=== PATIENT | male | born 1990 | race Caucasian/White ===

== ENCOUNTER 2019-02-05 09:37 | Inpatient (IN) | payer MEDICAID ==
[~2019-02-05] VITALS: Ht 182.9 cm; Wt 97.5 kg
[~2019-02-05 09:37] MED LIST: CLIN300C10 PO
[2019-02-05] MEDS ORDERED: IBUPROFEN 600 MG TAB PO ONE (10:30)
[2019-02-05] MEDS ORDERED: CEFTRIAXONE 1 GM INJ IM ONE (10:30)
[2019-02-05] MEDS ORDERED: SOD CHLORIDE 0.9% 500 ML IV STA (11:23)
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
[2019-02-05] MEDS ORDERED: VANCOMYCIN 1 GM (PMX) 250 ML IVPB ONE (11:30)
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
[2019-02-05] MEDS ORDERED: VANCOMYCIN IV PER PHARMACY XX SCH (15:30)
[2019-02-05] MEDS ORDERED: NACL 0.9% 3 ML SYG IV SCH (15:30)
[2019-02-05] MEDS ORDERED: ONDANSETRON 4 MG INJ IV PRN (15:30)
[2019-02-05] MEDS ORDERED: HYDROCODONE/APAP (5/325) TAB PO PRN (15:30)
[2019-02-05] MEDS ORDERED: ACETAMINOPHEN 325 MG TAB PO PRN (15:30)
[2019-02-05] MEDS ORDERED: HYDROmorphONE 0.5 MG/0.5 ML SYG IV PRN (15:30)
[2019-02-05 15:50] VITALS: Ht 182.9 cm; Wt 97.5 kg
[2019-02-05 16:00] VITALS: BP 131/63; PULSE 97; RESP 18
[2019-02-05] MEDS: NICOTINE (14 MG/24 HR) PATCH TRANSDERM SCH (16:30)
[2019-02-05] MEDS: PIPER-TAZO 3.375 GM IV (PMX) 100 ML IVPB SCH (17:44)
[2019-02-05] MEDS: METHADONE (1 MG/ML 5 ML PO UD SYG) PO SCH (21:06)
[2019-02-05] MEDS: VANCOMYCIN 1.5 GM/NS 250 ML 250 ML IVPB SCH (21:06)
[2019-02-06] MEDS: PIPER-TAZO 3.375 GM IV (PMX) 100 ML IVPB SCH ×5 (00:25→23:18)
[2019-02-06] MEDS: VANCOMYCIN 1.5 GM/NS 250 ML 250 ML IVPB SCH ×3 (02:08→18:27)
[2019-02-06 08:08] VITALS: BP 138/66; PULSE 81; RESP 17
[2019-02-06] MEDS: METHADONE (1 MG/ML 5 ML PO UD SYG) PO SCH ×3 (08:50→20:46)
[2019-02-06] MEDS: NICOTINE (14 MG/24 HR) PATCH TRANSDERM SCH (08:51)
[2019-02-06] MEDS: ENOXAPARIN 40 MG/0.4 ML SYG SC SCH (08:51)
--- NOTE | 2019-02-06 12:27 | PN ---
Date/Time of Note Date/Time of Note DATE: 02/06/19 TIME: 12:24 Assessment/Plan VTE Prophylaxis Risk score (from Nsg)>0 risk: 0 SCD applied (from Nsg): Yes Pharmacological prophylaxis: LMWH Lines/Catheters IV Catheter Type (from Nrsg): Mid Line Assessment/Plan Hospital Course SUBJECTIVE: Continues to complain of LUE pain. OBJECTIVE: Physical Exam General: Adequately build 28 year-old male lying in bed in no apparent distress. HEENT: Normocephalic, atraumatic. Eyes: Anicteric sclerae, conjunctivae clear. ENT: Nasal septum is midline, oral mucosa is moist. Poor dentition. Neck supple, no JVD noticed. Respiratory: Bilaterally clear breath sounds. No use of accessory muscles of respiration. No adventitious breath sounds. Cardiovascular: S1, S2 heard. Regular rate and rhythm. Abdomen: Soft, nontender, and nondistended. Bowel sounds positive in all 4 quadrants. Genitourinary: Deferred. Extremities: No cyanosis, no clubbing. Left hand edema and erythema with tenderness in the dorsal aspect. Left forearm larger than right for arm. Peripheral pulses palpable. Neurologic: Cranial nerves II through XII grossly intact. The patient is awake, alert, and oriented. Labs & Vitals per chart ASSESSMENT & PLAN 28-year-old male with history of IV drug use who presented to the emergency room with left arm pain and edema with evidence of underlying cellulitis and possible underlying abscess, who was admitted to inpatient setting for further treatment and evaluation. 1. Left hand cellulitis with possible underlying abscess. Continue the patient on antimicrobials including coverage for anaerobes and MRSA. Orthopedic surgery consult pending. Continue pain control. Elevate left upper extremity while resting. 2. IV drug abuse. Cessation advised. Social work consult. 3. Homelessness. Social work consult. 4. Fluids, electrolytes, and nutrition. Regular diet. 5. DVT prophylaxis. Subcutaneous Lovenox. 6. Plan. Continue antimicrobials. Await left upper extremity MRI. Await orthopedic surgery evaluation. Obtain ID consult. The patient was seen in collaboration with Dr. Arrieta. Result Diagram: 02/06/19 0830 02/06/19 0830 Results 24hrs Laboratory Tests Test 02/06/19 08:30 White Blood Count 4.3 #L Red Blood Count 4.22 L Hemoglobin 12.6 L Hematocrit 37.4 L Mean Corpuscular Volume 88.6 Mean Corpuscular Hemoglobin 29.9 Mean Corpuscular Hemoglobin Concent 33.7 Red Cell Distribution Width 12.7 Platelet Count 275 Mean Platelet Volume 8.7 Immature Granulocytes % 0.700 H Neutrophils % 67.4 Lymphocytes % 18.6 Monocytes % 10.5 Eosinophils % 1.6 Basophils % 1.2 Nucleated Red Blood Cells % 0.0 Immature Granulocytes # 0.030 Neutrophils # 2.9 Lymphocytes # 0.8 Monocytes # 0.5 Eosinophils # 0.1 Basophils # 0.1 Nucleated Red Blood Cells # 0.0 Erythrocyte Sedimentation Rate 33 H Sodium Level 139 Potassium Level 3.5 Chloride Level 107 Carbon Dioxide Level 26 Anion Gap 6 Blood Urea Nitrogen 9 Creatinine 0.76 Est Glomerular Filtrat Rate mL/min > 60 Glucose Level 98 Calcium Level 8.5 Phosphorus Level 3.3 Magnesium Level 1.8 Total Bilirubin 0.7 Direct Bilirubin 0.00 Indirect Bilirubin 0.7 Aspartate Amino Transf (AST/SGOT) 36 Alanine Aminotransferase (ALT/SGPT) 36 Alkaline Phosphatase 52 C-Reactive Protein 4.0 H Total Protein 6.5 Albumin 3.2 L Globulin 3.30 H Albumin/Globulin Ratio 0.96 Exam/Review of Systems Exam Vitals Vital Signs Date Temp Pulse Resp B/P (MAP) Pulse Ox O2 O2 Flow FiO2 Time Delivery Rate 02/06/19 98.4 81 17 138/66 96 08:08 (90) 02/05/19 Room Air 16:00 Intake and Output 02/05/19 02/05/19 02/06/19 1515:00 23:00 07:00 IntakeIntake Total 580 ml 940 ml OutputOutput Total 500 ml BalanceBalance 580 ml 440 ml Results Results 24hrs Laboratory Tests Test 02/06/19 08:30 White Blood Count 4.3 #L Red Blood Count 4.22 L Hemoglobin 12.6 L Hematocrit 37.4 L Mean Corpuscular Volume 88.6 Mean Corpuscular Hemoglobin 29.9 Mean Corpuscular Hemoglobin Concent 33.7 Red Cell Distribution Width 12.7 Platelet Count 275 Mean Platelet Volume 8.7 Immature Granulocytes % 0.700 H Neutrophils % 67.4 Lymphocytes % 18.6 Monocytes % 10.5 Eosinophils % 1.6 Basophils % 1.2 Nucleated Red Blood Cells % 0.0 Immature Granulocytes # 0.030 Neutrophils # 2.9 Lymphocytes # 0.8 Monocytes # 0.5 Eosinophils # 0.1 Basophils # 0.1 Nucleated Red Blood Cells # 0.0 Erythrocyte Sedimentation Rate 33 H Sodium Level 139 Potassium Level 3.5 Chloride Level 107 Carbon Dioxide Level 26 Anion Gap 6 Blood Urea Nitrogen 9 Creatinine 0.76 Est Glomerular Filtrat Rate mL/min > 60 Glucose Level 98 Calcium Level 8.5 Phosphorus Level 3.3 Magnesium Level 1.8 Total Bilirubin 0.7 Direct Bilirubin 0.00 Indirect Bilirubin 0.7 Aspartate Amino Transf (AST/SGOT) 36 Alanine Aminotransferase (ALT/SGPT) 36 Alkaline Phosphatase 52 C-Reactive Protein 4.0 H Total Protein 6.5 Albumin 3.2 L Globulin 3.30 H Albumin/Globulin Ratio 0.96 Medications Medication Current Medications IV Flush (NS 3 ml) 3 ml PER PROTOCOL IV ; Start 02/05/19 at 15:30 Ondansetron HCl (Zofran Inj) 4 mg Q6H PRN IV NAUSEA/VOMITING; Start 02/05/19 at 15:30 Acetaminophen (Tylenol Tab) 650 mg Q6H PRN PO .PAIN 1-3 OR TEMP; Start 02/05/19 at 15:30 Acetaminophen/ Hydrocodone Bitart ([place] (5/325)) 1 tab Q6H PRN PO .MOD PAIN 4- 6; Start 02/05/19 at 15:30 Hydromorphone HCl (Dilaudid) 0.5 mg Q4H PRN IV .SEVERE PAIN 7-10; Start 02/05/19 at 15:30 Enoxaparin Sodium (Lovenox) 40 mg DAILY SC ; Start 02/06/19 at 09:00 Vancomycin HCl (Vanco Iv Per Pharmacy) VANCOMYCIN PER PHARMACY PER PROTOCOL XX ; Start 02/05/19 at 15:30 Piperacillin Sod/ Tazobactam Sod 100 ml @ 200 mls/hr Q6 IVPB Last administered on 02/06/19at 05:42; Admin Dose 200 MLS/HR; Start 02/05/19 at 18:00 Vancomycin/Sodium Chloride 250 ml @ 83.333 mls/ hr Q8H IVPB Last administered on 02/06/19at 10:18; Admin Dose 83.333 MLS/HR; Start 02/05/19 at 18:00 Nicotine (Nicoderm 14 Mg/ 24hr) 1 patch DAILY TRANSDERM ; Start 02/05/19 at 16:30 Methadone HCl (Methadone Liq) 20 mg TID PO Last administered on 02/06/19at 08:50; Admin Dose 20 MG; Start 02/05/19 at 21:00 RADHA ROSS NP Feb 06, 2019 12:27
[2019-02-06 15:08] VITALS: BP 130/74; PULSE 80; RESP 18
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
[2019-02-06 20:00] VITALS: BP 131/66; PULSE 69; RESP 17
[2019-02-07 02:00] VITALS: BP 126/59; PULSE 62; RESP 17
[2019-02-07] MEDS: VANCOMYCIN 1.5 GM/NS 250 ML 250 ML IVPB SCH ×2 (02:23→09:17)
[2019-02-07] MEDS: PIPER-TAZO 3.375 GM IV (PMX) 100 ML IVPB SCH ×3 (05:40→17:08)
[2019-02-07 07:59] VITALS: BP 121/71; PULSE 72; RESP 18
[2019-02-07 08:00] VITALS: BP 127/64; PULSE 64; RESP 18
[2019-02-07] MEDS: NICOTINE (14 MG/24 HR) PATCH TRANSDERM SCH (09:00)
[2019-02-07] MEDS: ENOXAPARIN 40 MG/0.4 ML SYG SC SCH ×2 (09:00→10:11)
[2019-02-07] MEDS: METHADONE (1 MG/ML 5 ML PO UD SYG) PO SCH ×2 (11:15→14:02)
[2019-02-07 14:03] VITALS: BP 131/67; PULSE 68; RESP 18
--- NOTE | 2019-02-07 14:10 | PN ---
Date/Time of Note Date/Time of Note DATE: 02/07/19 TIME: 14:06 Assessment/Plan VTE Prophylaxis Risk score (from Nsg)>0 risk: 0 SCD applied (from Nsg): Yes Pharmacological prophylaxis: LMWH Lines/Catheters IV Catheter Type (from Nrsg): Mid Line Assessment/Plan Hospital Course Assessment and plan #Left hand cellulitis with abscess. MRI of left hand did show: Abscess within the dorsal hand at the level of the metacarpals over the extensor tendons in which the fluid collection also extends to surround the fourth extensor compartment tendons at the level of the carpal bones with tenosynovitis (8.2 x 4.1 x 1.3 cm). Orthopedic surgeon to follow Continue with antibiotics #History of IV drug use Cessation was advised viscosity worker to follow #Homelessness viscosity worker to follow Disposition and plan. Continue with antibiotics. Awaiting surgeon evaluation. Analgesics as needed. viscosity worker to follow. Discussed POC with Dr. Mora Result Diagram: 02/06/19 0830 02/06/19 0830 Results 24hrs Laboratory Tests Test 02/06/19 17:10 Vancomycin Level Trough 17.2 Subjective 24 Hr Interval Summary Free Text/Dictation reports pain on left hand Exam/Review of Systems Exam Vitals Vital Signs Date Temp Pulse Resp B/P (MAP) Pulse Ox O2 O2 Flow FiO2 Time Delivery Rate 02/07/19 97.7 68 18 131/67 97 14:03 (88) 02/05/19 Room Air 16:00 Intake and Output 02/06/19 02/06/19 02/07/19 1515:00 23:00 07:00 IntakeIntake Total 350 ml 850 ml 450 ml OutputOutput Total 350 ml BalanceBalance 350 ml 500 ml 450 ml Constitutional: alert, oriented Psych: nl mood/affect Head: normocephalic Neck: supple Respiratory: No wheezing Cardiovascular: other (regular rate ) Gastrointestinal: soft, non-tender Musculoskeletal: swelling (left hand ) Neurological: SVP RESEARCH AND STRATEGIC ANALYSIS II-XII intact, nl mental status, nl speech Skin: other (erythema swelling on left hand ) Results Results 24hrs Laboratory Tests Test 02/06/19 17:10 Vancomycin Level Trough 17.2 Medications Medication Current Medications IV Flush (NS 3 ml) 3 ml PER PROTOCOL IV ; Start 02/05/19 at 15:30 Ondansetron HCl (Zofran Inj) 4 mg Q6H PRN IV NAUSEA/VOMITING; Start 02/05/19 at 15:30 Acetaminophen (Tylenol Tab) 650 mg Q6H PRN PO .PAIN 1-3 OR TEMP; Start 02/05/19 at 15:30 Acetaminophen/ Hydrocodone Bitart ([place] (5/325)) 1 tab Q6H PRN PO .MOD PAIN 4- 6; Start 02/05/19 at 15:30 Hydromorphone HCl (Dilaudid) 0.5 mg Q4H PRN IV .SEVERE PAIN 7-10; Start 02/05/19 at 15:30 Enoxaparin Sodium (Lovenox) 40 mg DAILY SC ; Start 02/06/19 at 09:00 Vancomycin HCl (Vanco Iv Per Pharmacy) VANCOMYCIN PER PHARMACY PER PROTOCOL XX ; Start 02/05/19 at 15:30 Piperacillin Sod/ Tazobactam Sod 100 ml @ 200 mls/hr Q6 IVPB Last administered on 02/07/19at 11:15; Admin Dose 200 MLS/HR; Start 02/05/19 at 18:00 Nicotine (Nicoderm 14 Mg/ 24hr) 1 patch DAILY TRANSDERM ; Start 02/05/19 at 16:30 Methadone HCl (Methadone Liq) 20 mg TID PO Last administered on 02/07/19at 14:02; Admin Dose 20 MG; Start 02/05/19 at 21:00 Vancomycin/Sodium Chloride 250 ml @ 83.333 mls/ hr Q8H IVPB ; Start 02/07/19 at 21:00 Miscellaneous Information (*Rx Drug Level Order Reminder*) 1999 ONCE XX ; Start 02/08/19 at 20:00; Stop 02/08/19 at 20:01 LEIDY DENNIS NP Feb 07, 2019 14:10
[2019-02-07 20:00] VITALS: BP 126/61; PULSE 71; RESP 18
--- NOTE | 2019-02-07 20:35 | PN ---
DATE: 02/07/2019 SUBJECTIVE: Patient is awake, looks comfortable, no fevers overnight. He is on IV vancomycin and Zo syn. Blood cultures negative. PHYSICAL EXAMINATION: GENERAL: This is a well-developed, middle-aged white man who is alert, in no distress. HEENT: Head atraumatic, normocephalic. Sclerae anicteric. Buccal mucosa dry. NECK: Supple. CHEST: Rise symmetrical. Breath sounds clear. HEART: S1, S2. ABDOMEN: Soft, bowel sounds present. EXTREMITIES: Left hand significant swelling and erythema extending up to the elbow. ASSESSMENT: 1. Left hand cellulitis, possible abscess. 2. Intravenous drug abuse. 3. Homelessness. PLAN: The patient remains stable. Continue antibiotics. Continue left hand elevation on 3 pillows. Await for ortho evaluation and recommendations. Apply warm moist compresses hourly. Dictated By: ADRIENNE LOPEZ TIRE FINISHER for VINEET FLOWERS/DANY Conf#: [id number] DID#: [id number]
[2019-02-07] MEDS: METHADONE 10 MG TAB PO SCH (20:52)
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
[2019-02-07] MEDS: VANCOMYCIN 1.25 GM/NS 250 ML 250 ML IVPB SCH (21:05)
[2019-02-08] MEDS: PIPER-TAZO 3.375 GM IV (PMX) 100 ML IVPB SCH ×4 (00:26→18:33)
[2019-02-08 02:00] VITALS: BP 107/61; PULSE 67; RESP 19
[2019-02-08] MEDS: VANCOMYCIN 1.25 GM/NS 250 ML 250 ML IVPB SCH ×2 (04:33→14:53)
--- NOTE | 2019-02-08 07:25 | CONS ---
Assessment/Plan Assessment/Plan Assessment/Plan (Daily) Left hand abscess Heroin use Denies sharing needles Denies a history of hepatitis or HIV Antisocial personality Complete database secondary to the above At this time we will start him off on methadone minimal pain control medications. At the time of discharge patient should be referred to a drug treatment program and outpatient to methadone treatment program. Consultation Date/Type/Reason Admit Date/Time Date/Time of Note DATE: 02/08/19 TIME: 07:22 Hx of Present Illness This is a 28-year-old male who presents [facility] with left hand and arm cellulitis and asked to see in pain management consultation. This gentleman is less than enthusiastic to give me a clear history of present illness. He is asleep he has the covers over his head and I am stimulating him when he wakes up he seems very irritated. He has a history of IV drug abuse with heroin, shooting up approximately 8 times a day. Currently on IV antibiotics been seen by orthopedics surgery and infectious disease. On broad- spectrum IV antibiotic coverage she does not give me a history of how long he has been on heroin he does say he was arrested at some time in the past, he has never been on a drug treatment program he is homeless. The last time he shot up was the day of admission. [place] any other illicit drug use. Past Medical History Home Meds No Active Prescriptions or Reported Meds Medications Current Medications IV Flush (NS 3 ml) 3 ml PER PROTOCOL IV ; Start 02/05/19 at 15:30 Ondansetron HCl (Zofran Inj) 4 mg Q6H PRN IV NAUSEA/VOMITING; Start 02/05/19 at 15:30 Acetaminophen (Tylenol Tab) 650 mg Q6H PRN PO .PAIN 1-3 OR TEMP; Start 02/05/19 at 15:30 Acetaminophen/ Hydrocodone Bitart ([place] (5/325)) 1 tab Q6H PRN PO .MOD PAIN 4- 6; Start 02/05/19 at 15:30 Hydromorphone HCl (Dilaudid) 0.5 mg Q4H PRN IV .SEVERE PAIN 7-10; Start 02/05/19 at 15:30 Enoxaparin Sodium (Lovenox) 40 mg DAILY SC ; Start 02/06/19 at 09:00 Vancomycin HCl (Vanco Iv Per Pharmacy) VANCOMYCIN PER PHARMACY PER PROTOCOL XX ; Start 02/05/19 at 15:30 Piperacillin Sod/ Tazobactam Sod 100 ml @ 200 mls/hr Q6 IVPB Last administered on 02/08/19at 00:26; Admin Dose 200 MLS/HR; Start 02/05/19 at 18:00 Nicotine (Nicoderm 14 Mg/ 24hr) 1 patch DAILY TRANSDERM ; Start 02/05/19 at 16:30 Vancomycin/Sodium Chloride 250 ml @ 83.333 mls/ hr Q8H IVPB Last administered on 02/08/19at 04:33; Admin Dose 83.333 MLS/HR; Start 02/07/19 at 21:00 Miscellaneous Information (*Rx Drug Level Order Reminder*) 1999 ONCE XX ; Start 02/08/19 at 20:00; Stop 02/08/19 at 20:01 Methadone HCl (Methadone) 20 mg TID PO Last administered on 02/07/19at 20:52; Admin Dose 20 MG; Start 02/07/19 at 21:00 Allergies: Coded Allergies: cortisone (Verified Allergy, Mild, 02/05/19) Past Surgical History Past Surgical Hx: no surgical history Social History Alcohol Use: none Smoking Status: Current every day smoker Drug Use: heroin Exam/Review of Systems Exam Vitals Vital Signs Date Temp Pulse Resp B/P (MAP) Pulse Ox O2 O2 Flow FiO2 Time Delivery Rate 02/08/19 98.0 67 19 107/61 96 02:00 (76) 02/05/19 Room Air 16:00 Intake and Output 02/07/19 02/07/19 02/08/19 1515:00 23:00 07:00 IntakeIntake Total 1482 ml 460 ml 750 ml OutputOutput Total 1300 ml 300 ml 600 ml BalanceBalance 182 ml 160 ml 150 ml Constitutional: alert, oriented, well developed Psych: other (Irritated) Head: normocephalic, atraumatic; No lacerations, No hematomas, No other Eyes: nl conjunctiva, EOMI, nl lids, nl sclera, PERRL; No icteric, No fundi, disc, No other Neck: supple, non-tender; No jvd, No bruits, No masses, No thyromegaly, No nuchal rigidity, No other Respiratory: clear to auscultation, normal air movement; No congested cough, No crackles/rales, No diminished breath sounds, No intercostal retraction, No labored breathing, No respirations, No tactile fremitus, No wheezing, No other Extremities: other (Left hand grossly edematous erythematous from digits to elbow no gross streaking erythema flocculence of the dorsal aspect of his left hand) Results Result Diagram: 02/06/19 0830 02/08/19 0533 Results 24hrs Laboratory Tests Test 02/08/19 05:33 Blood Urea Nitrogen 6 L Creatinine 0.89 Medications Medication Current Medications IV Flush (NS 3 ml) 3 ml PER PROTOCOL IV ; Start 02/05/19 at 15:30 Ondansetron HCl (Zofran Inj) 4 mg Q6H PRN IV NAUSEA/VOMITING; Start 02/05/19 at 15:30 Acetaminophen (Tylenol Tab) 650 mg Q6H PRN PO .PAIN 1-3 OR TEMP; Start 02/05/19 at 15:30 Acetaminophen/ Hydrocodone Bitart ([place] (5/325)) 1 tab Q6H PRN PO .MOD PAIN 4- 6; Start 02/05/19 at 15:30 Hydromorphone HCl (Dilaudid) 0.5 mg Q4H PRN IV .SEVERE PAIN 7-10; Start 02/05/19 at 15:30 Enoxaparin Sodium (Lovenox) 40 mg DAILY SC ; Start 02/06/19 at 09:00 Vancomycin HCl (Vanco Iv Per Pharmacy) VANCOMYCIN PER PHARMACY PER PROTOCOL XX ; Start 02/05/19 at 15:30 Piperacillin Sod/ Tazobactam Sod 100 ml @ 200 mls/hr Q6 IVPB Last administered on 02/08/19at 00:26; Admin Dose 200 MLS/HR; Start 02/05/19 at 18:00 Nicotine (Nicoderm 14 Mg/ 24hr) 1 patch DAILY TRANSDERM ; Start 02/05/19 at 16:30 Vancomycin/Sodium Chloride 250 ml @ 83.333 mls/ hr Q8H IVPB Last administered on 02/08/19at 04:33; Admin Dose 83.333 MLS/HR; Start 02/07/19 at 21:00 Miscellaneous Information (*Rx Drug Level Order Reminder*) 1999 ONCE XX ; Start 02/08/19 at 20:00; Stop 02/08/19 at 20:01 Methadone HCl (Methadone) 20 mg TID PO Last administered on 02/07/19at 20:52; Admin Dose 20 MG; Start 02/07/19 at 21:00 JOSÉ MIGUEL GONZALES Feb 08, 2019 07:25
[2019-02-08] MEDS ORDERED: HYDROmorphONE 2 MG/ML SYG IV PRN (07:30)
[2019-02-08 08:00] VITALS: BP 134/72; PULSE 73; RESP 14
[2019-02-08] MEDS: METHADONE 10 MG TAB PO SCH ×3 (08:15→22:00)
[2019-02-08] MEDS: NICOTINE (14 MG/24 HR) PATCH TRANSDERM SCH (08:15)
[2019-02-08] MEDS: ENOXAPARIN 40 MG/0.4 ML SYG SC SCH (08:16)
[2019-02-08] MEDS ORDERED: HYDROCODONE/APAP (5/325) TAB PO PRN (09:30)
--- NOTE | 2019-02-08 11:32 | PN ---
Date/Time of Note Date/Time of Note DATE: 02/08/19 TIME: 11:29 Assessment/Plan VTE Prophylaxis Risk score (from Nsg)>0 risk: 0 SCD applied (from Nsg): No SCD contraindicated: other Pharmacological prophylaxis: LMWH Lines/Catheters IV Catheter Type (from Nrsg): Mid Line Assessment/Plan Hospital Course Assessment and plan #Left hand cellulitis with abscess. MRI of left hand did show: Abscess within the dorsal hand at the level of the metacarpals over the extensor tendons in which the fluid collection also extends to surround the fourth extensor compartment tendons at the level of the carpal bones with tenosynovitis (8.2 x 4.1 x 1.3 cm). 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 Continue with antibiotics. Tentative plan for I&D of left upper extremity. Continue in-house monitoring. Discussed POC with Dr. Mora Result Diagram: 02/06/19 0830 02/08/19 0533 Results 24hrs Laboratory Tests Test 02/08/19 05:33 Blood Urea Nitrogen 6 L Creatinine 0.89 Subjective 24 Hr Interval Summary Free Text/Dictation Reports still having pain on left hand. Exam/Review of Systems Exam Vitals Vital Signs Date Temp Pulse Resp B/P (MAP) Pulse Ox O2 O2 Flow FiO2 Time Delivery Rate 02/08/19 96.8 73 14 134/72 95 08:00 (92) 02/05/19 Room Air 16:00 Intake and Output 02/07/19 02/07/19 02/08/19 1515:00 23:00 07:00 IntakeIntake Total 1482 ml 460 ml 750 ml OutputOutput Total 1300 ml 300 ml 600 ml BalanceBalance 182 ml 160 ml 150 ml Exam Constitutional: alert, oriented Psych: nl mood/affect Head: normocephalic Neck: supple Respiratory: No wheezing Cardiovascular: other (regular rate ) Gastrointestinal: soft, non-tender Musculoskeletal: swelling (left hand ) Neurological: HEAD BANQUET WAITRESS II-XII intact, nl mental status, nl speech Skin: other (erythema swelling on left hand ) Results Results 24hrs Laboratory Tests Test 02/08/19 05:33 Blood Urea Nitrogen 6 L Creatinine 0.89 Medications Medication Current Medications IV Flush (NS 3 ml) 3 ml PER PROTOCOL IV ; Start 02/05/19 at 15:30 Ondansetron HCl (Zofran Inj) 4 mg Q6H PRN IV NAUSEA/VOMITING; Start 02/05/19 at 15:30 Acetaminophen (Tylenol Tab) 650 mg Q6H PRN PO .PAIN 1-3 OR TEMP; Start 02/05/19 at 15:30 Enoxaparin Sodium (Lovenox) 40 mg DAILY SC ; Start 02/06/19 at 09:00 Vancomycin HCl (Vanco Iv Per Pharmacy) VANCOMYCIN PER PHARMACY PER PROTOCOL XX ; Start 02/05/19 at 15:30 Piperacillin Sod/ Tazobactam Sod 100 ml @ 200 mls/hr Q6 IVPB Last administered on 02/08/19at 08:12; Admin Dose 200 MLS/HR; Start 02/05/19 at 18:00 Nicotine (Nicoderm 14 Mg/ 24hr) 1 patch DAILY TRANSDERM ; Start 02/05/19 at 16 :30 Vancomycin/Sodium Chloride 250 ml @ 83.333 mls/ hr Q8H IVPB Last administered on 02/08/19at 04:33; Admin Dose 83.333 MLS/HR; Start 02/07/19 at 21:00 Miscellaneous Information (*Rx Drug Level Order Reminder*) 1 2000 ONCE XX ; Start 02/08/19 at 20:00; Stop 02/08/19 at 20:01 Methadone HCl (Methadone) 20 mg TID PO Last administered on 02/08/19at 08:15; Admin Dose 20 MG; Start 02/07/19 at 21:00 Acetaminophen/ Hydrocodone Bitart ([place] (5/325)) 2 tab Q6H PRN PO .MOD PAIN 4- 6; Start 02/08/19 at 09:30 Hydromorphone HCl (Dilaudid) 2 mg Q4H PRN IV SEVERE PAIN LEVEL 7-10; Start 02/08/19 at 07:30 LEIDY DENNIS NP Feb 08, 2019 11:32
--- NOTE | 2019-02-08 13:39 | CONS ---
Assessment/Plan Assessment/Plan Hospital Course (Demo Recall) SUBJECTIVE: Sleeping, looks comfortable, no fevers overnight. Abx: IV vancomycin and Zosyn. Blood cultures negative. PHYSICAL EXAMINATION: GENERAL: This is a well-developed, middle-aged white man who is in no distress. HEENT: Head atraumatic, normocephalic. Sclerae anicteric. Buccal mucosa dry. NECK: Supple. CHEST: Rise symmetrical. Breath sounds clear. HEART: S1, S2. ABDOMEN: Soft, bowel sounds present. EXTREMITIES: Left hand significant swelling and erythema extending up to the elbow. ASSESSMENT: 1. Left hand cellulitis, possible abscess. 2. Intravenous drug abuse. 3. Homelessness. PLAN: The patient remains stable. Continue antibiotics. Continue left hand el evation and warm moist compresses hourly. After surgery recommendations noted patient may require I&D in couple days Consultation Date/Type/Reason Admit Date/Time Feb 05, 2019 at 15:09 Initial Consult Date Type of Consult id Date/Time of Note DATE: 02/08/19 TIME: 13:38 Exam/Review of Systems Exam Vitals Vital Signs Date Temp Pulse Resp B/P (MAP) Pulse Ox O2 O2 Flow FiO2 Time Delivery Rate 02/08/19 96.8 73 14 134/72 95 08:00 (92) 02/05/19 Room Air 16:00 Intake and Output 02/07/19 02/07/19 02/08/19 1515:00 23:00 07:00 IntakeIntake Total 1482 ml 460 ml 750 ml OutputOutput Total 1300 ml 300 ml 600 ml BalanceBalance 182 ml 160 ml 150 ml Results Result Diagram: 02/06/19 0830 02/08/19 0533 Results 24hrs Laboratory Tests Test 02/08/19 05:33 Blood Urea Nitrogen 6 L Creatinine 0.89 Medications Medication Current Medications IV Flush (NS 3 ml) 3 ml PER PROTOCOL IV ; Start 02/05/19 at 15:30 Ondansetron HCl (Zofran Inj) 4 mg Q6H PRN IV NAUSEA/VOMITING; Start 02/05/19 at 15:30 Acetaminophen (Tylenol Tab) 650 mg Q6H PRN PO .PAIN 1-3 OR TEMP; Start 02/05/19 at 15:30 Enoxaparin Sodium (Lovenox) 40 mg DAILY SC ; Start 02/06/19 at 09:00 Vancomycin HCl (Vanco Iv Per Pharmacy) VANCOMYCIN PER PHARMACY PER PROTOCOL XX ; Start 02/05/19 at 15:30 Piperacillin Sod/ Tazobactam Sod 100 ml @ 200 mls/hr Q6 IVPB Last administered on 02/08/19at 08:12; Admin Dose 200 MLS/HR; Start 02/05/19 at 18:00 Nicotine (Nicoderm 14 Mg/ 24hr) 1 patch DAILY TRANSDERM ; Start 02/05/19 at 16 :30 Vancomycin/Sodium Chloride 250 ml @ 83.333 mls/ hr Q8H IVPB Last administered on 02/08/19at 04:33; Admin Dose 83.333 MLS/HR; Start 02/07/19 at 21:00 Miscellaneous Information (*Rx Drug Level Order Reminder*) 1 1999 ONCE XX ; Start 02/08/19 at 20:00; Stop 02/08/19 at 20:01 Methadone HCl (Methadone) 20 mg TID PO Last administered on 02/08/19at 08:15; Admin Dose 20 MG; Start 02/07/19 at 21:00 Acetaminophen/ Hydrocodone Bitart ([place] (5/325)) 2 tab Q6H PRN PO .MOD PAIN 4- 6; Start 02/08/19 at 09:30 Hydromorphone HCl (Dilaudid) 2 mg Q4H PRN IV SEVERE PAIN LEVEL 7-10; Start 02/08/19 at 07:30 ADRIENNE LOPEZ NP Feb 08, 2019 13:39
[2019-02-08 14:00] VITALS: BP 141/66; PULSE 67; RESP 14
[2019-02-08 20:00] VITALS: BP 131/63; PULSE 71; RESP 19
[2019-02-08] MEDS: VANCOMYCIN 750 MG (PMX) 250 ML IVPB SCH (22:00)
[2019-02-09] MEDS: PIPER-TAZO 3.375 GM IV (PMX) 100 ML IVPB SCH ×4 (00:45→17:59)
[2019-02-09 02:00] VITALS: BP 130/72; PULSE 72; RESP 18
[2019-02-09] MEDS: VANCOMYCIN 750 MG (PMX) 250 ML IVPB SCH ×3 (06:04→22:23)
[2019-02-09 08:00] VITALS: BP 135/82; PULSE 68; RESP 20
[2019-02-09] MEDS: METHADONE 10 MG TAB PO SCH ×3 (08:30→22:18)
[2019-02-09] MEDS: ENOXAPARIN 40 MG/0.4 ML SYG SC SCH (08:31)
[2019-02-09] MEDS: NICOTINE (14 MG/24 HR) PATCH TRANSDERM SCH (08:31)
--- NOTE | 2019-02-09 09:04 | CONS ---
Assessment/Plan Assessment/Plan Assessment/Plan (Daily) Left hand abscess Heroin use Denies sharing needles Denies a history of hepatitis or HIV Antisocial personality Complete database secondary to the above Continue conservative use of any other opioids, discussed with patient yesterday Consultation Date/Type/Reason Admit Date/Time Feb 05, 2019 at 15:09 Initial Consult Date Date/Time of Note DATE: 02/09/19 TIME: 09:02 Exam/Review of Systems Exam Vitals Vital Signs Date Temp Pulse Resp B/P (MAP) Pulse Ox O2 O2 Flow FiO2 Time Delivery Rate 02/09/19 98.6 68 20 135/82 96 08:00 (99) 02/05/19 Room Air 16:00 Intake and Output 02/08/19 02/08/19 02/09/19 1515:00 23:00 07:00 IntakeIntake Total 450 ml 1440 ml 1150 ml BalanceBalance 450 ml 1440 ml 1150 ml Results Result Diagram: 02/09/19 0600 02/09/19 0600 Results 24hrs Laboratory Tests Test 02/08/19 20:02 02/09/19 06:00 Vancomycin Level Trough 19.5 White Blood Count 7.5 # Red Blood Count 4.19 L Hemoglobin 12.3 L Hematocrit 38.1 L Mean Corpuscular Volume 90.9 Mean Corpuscular Hemoglobin 29.4 Mean Corpuscular Hemoglobin Concent 32.3 Red Cell Distribution Width 12.6 Platelet Count 315 Mean Platelet Volume 8.7 Immature Granulocytes % 1.100 H Neutrophils % 59.1 Lymphocytes % 25.5 Monocytes % 10.0 Eosinophils % 3.6 Basophils % 0.7 Nucleated Red Blood Cells % 0.0 Immature Granulocytes # 0.080 H Neutrophils # 4.5 Lymphocytes # 1.9 Monocytes # 0.8 Eosinophils # 0.3 Basophils # 0.1 Nucleated Red Blood Cells # 0.0 Sodium Level 140 Potassium Level 3.8 Chloride Level 104 Carbon Dioxide Level 32 H Anion Gap 4 L Blood Urea Nitrogen 9 Creatinine 1.00 Est Glomerular Filtrat Rate mL/min > 60 Glucose Level 92 Calcium Level 8.8 Medications Medication Current Medications IV Flush (NS 3 ml) 3 ml PER PROTOCOL IV ; Start 02/05/19 at 15:30 Ondansetron HCl (Zofran Inj) 4 mg Q6H PRN IV NAUSEA/VOMITING; Start 02/05/19 at 15:30 Acetaminophen (Tylenol Tab) 650 mg Q6H PRN PO .PAIN 1-3 OR TEMP; Start 02/05/19 at 15:30 Enoxaparin Sodium (Lovenox) 40 mg DAILY SC ; Start 02/06/19 at 09:00 Vancomycin HCl (Vanco Iv Per Pharmacy) VANCOMYCIN PER PHARMACY PER PROTOCOL XX ; Start 02/05/19 at 15:30 Piperacillin Sod/ Tazobactam Sod 100 ml @ 200 mls/hr Q6 IVPB Last administered on 02/09/19at 05:23; Admin Dose 200 MLS/HR; Start 02/05/19 at 18:00 Nicotine (Nicoderm 14 Mg/ 24hr) 1 patch DAILY TRANSDERM ; Start 02/05/19 at 16:30 Methadone HCl (Methadone) 20 mg TID PO Last administered on 02/09/19at 08:30; Admin Dose 20 MG; Start 02/07/19 at 21:00 Acetaminophen/ Hydrocodone Bitart ([place] (5/325)) 2 tab Q6H PRN PO .MOD PAIN 4- 6; Start 02/08/19 at 09:30 Hydromorphone HCl (Dilaudid) 2 mg Q4H PRN IV SEVERE PAIN LEVEL 7-10; Start 02/08/19 at 07:30 Vancomycin/Sodium Chloride 250 ml @ 125 mls/hr Q8H IVPB Last administered on 02/09/19at 06:04; Admin Dose 125 MLS/HR; Start 02/08/19 at 22:00 JOSÉ MIGUEL GONZALES Feb 09, 2019 09:04
--- NOTE | 2019-02-09 13:37 | CONS ---
Assessment/Plan Assessment/Plan Hospital Course (Demo Recall) SUBJECTIVE: No events, looks comfortable, no fevers overnight. Abx: IV vancomycin and Zosyn. Blood cultures negative. PHYSICAL EXAMINATION: GENERAL: This is a well-developed, middle-aged white man who is in no distress. HEENT: Head atraumatic, normocephalic. Sclerae anicteric. Buccal mucosa dry. NECK: Supple. CHEST: Rise symmetrical. Breath sounds clear. HEART: S1, S2. ABDOMEN: Soft, bowel sounds present. EXTREMITIES: Left hand significant swelling and erythema extending up to the elbow. ASSESSMENT: 1. Left hand cellulitis, possible abscess. 2. Intravenous drug abuse. 3. Homelessness. PLAN: The patient remains stable. Continue antibiotics. Continue left hand e levation and warm moist compresses hourly. F/u Ortho surgery recommendations==> may require I&D. Monitor renal f-n Consultation Date/Type/Reason Admit Date/Time Feb 05, 2019 at 15:09 Initial Consult Date Type of Consult id Date/Time of Note DATE: 02/09/19 TIME: 13:36 Exam/Review of Systems Exam Vitals Vital Signs Date Temp Pulse Resp B/P (MAP) Pulse Ox O2 O2 Flow FiO2 Time Delivery Rate 02/09/19 98.6 68 20 135/82 96 08:00 (99) 02/05/19 Room Air 16:00 Intake and Output 02/08/19 02/08/19 02/09/19 1414:59 22:59 06:59 IntakeIntake Total 450 ml 1440 ml 1150 ml BalanceBalance 450 ml 1440 ml 1150 ml Results Result Diagram: 02/09/19 0600 02/09/19 0600 Results 24hrs Laboratory Tests Test 02/08/19 20:02 02/09/19 06:00 Vancomycin Level Trough 19.5 White Blood Count 7.5 # Red Blood Count 4.19 L Hemoglobin 12.3 L Hematocrit 38.1 L Mean Corpuscular Volume 90.9 Mean Corpuscular Hemoglobin 29.4 Mean Corpuscular Hemoglobin Concent 32.3 Red Cell Distribution Width 12.6 Platelet Count 315 Mean Platelet Volume 8.7 Immature Granulocytes % 1.100 H Neutrophils % 59.1 Lymphocytes % 25.5 Monocytes % 10.0 Eosinophils % 3.6 Basophils % 0.7 Nucleated Red Blood Cells % 0.0 Immature Granulocytes # 0.080 H Neutrophils # 4.5 Lymphocytes # 1.9 Monocytes # 0.8 Eosinophils # 0.3 Basophils # 0.1 Nucleated Red Blood Cells # 0.0 Sodium Level 140 Potassium Level 3.8 Chloride Level 104 Carbon Dioxide Level 32 H Anion Gap 4 L Blood Urea Nitrogen 9 Creatinine 1.00 Est Glomerular Filtrat Rate mL/min > 60 Glucose Level 92 Calcium Level 8.8 Medications Medication Current Medications IV Flush (NS 3 ml) 3 ml PER PROTOCOL IV ; Start 02/05/19 at 15:30 Ondansetron HCl (Zofran Inj) 4 mg Q6H PRN IV NAUSEA/VOMITING; Start 02/05/19 at 15:30 Acetaminophen (Tylenol Tab) 650 mg Q6H PRN PO .PAIN 1-3 OR TEMP; Start 02/05/19 at 15:30 Enoxaparin Sodium (Lovenox) 40 mg DAILY SC ; Start 02/06/19 at 09:00 Vancomycin HCl (Vanco Iv Per Pharmacy) VANCOMYCIN PER PHARMACY PER PROTOCOL XX ; Start 02/05/19 at 15:30 Piperacillin Sod/ Tazobactam Sod 100 ml @ 200 mls/hr Q6 IVPB Last administered on 02/09/19at 13:02; Admin Dose 200 MLS/HR; Start 02/05/19 at 18:00 Nicotine (Nicoderm 14 Mg/ 24hr) 1 patch DAILY TRANSDERM ; Start 02/05/19 at 16:30 Methadone HCl (Methadone) 20 mg TID PO Last administered on 02/09/19at 13:04; Admin Dose 20 MG; Start 02/07/19 at 21:00 Acetaminophen/ Hydrocodone Bitart ([place] (5/325)) 2 tab Q6H PRN PO .MOD PAIN 4- 6; Start 02/08/19 at 09:30 Hydromorphone HCl (Dilaudid) 2 mg Q4H PRN IV SEVERE PAIN LEVEL 7-10; Start 02/08/19 at 07:30 Vancomycin/Sodium Chloride 250 ml @ 125 mls/hr Q8H IVPB Last administered on 02/09/19at 06:04; Admin Dose 125 MLS/HR; Start 02/08/19 at 22:00 Miscellaneous Information (*Rx Drug Level Order Reminder*) VANCO TROUGH 02/10 @ 0,500 0500 ONCE XX ; Start 02/10/19 at 05:00; Stop 02/10/19 at 05:01 ADRIENNE LOPEZ NP Feb 09, 2019 13:37
[2019-02-09 14:00] VITALS: BP 130/76; PULSE 72; RESP 20
--- NOTE | 2019-02-09 15:28 | PN ---
Date/Time of Note Date/Time of Note DATE: 02/09/19 TIME: 15:27 Assessment/Plan VTE Prophylaxis Risk score (from Nsg)>0 risk: 0 SCD applied (from Nsg): No SCD contraindicated: low risk/ambulating Pharmacological prophylaxis: LMWH Lines/Catheters IV Catheter Type (from Nrsg): Mid Line Assessment/Plan Hospital Course Assessment and plan #Left hand cellulitis with abscess. MRI of left hand did show: Abscess within the dorsal hand at the level of the metacarpals over the extensor tendons in which the fluid collection also extends to surround the fourth extensor compartment tendons at the level of the carpal bones with tenosynovitis (8.2 x 4.1 x 1.3 cm). 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 Continue with antibiotics. Tentative plan for I&D of left upper extremity. Continue in-house monitoring. Awaiting surgeon follow- up. Check a.m. labs Discussed POC with Dr. Mora Result Diagram: 02/09/19 0600 02/09/19 0600 Results 24hrs Laboratory Tests Test 02/08/19 20:02 02/09/19 06:00 Vancomycin Level Trough 19.5 White Blood Count 7.5 # Red Blood Count 4.19 L Hemoglobin 12.3 L Hematocrit 38.1 L Mean Corpuscular Volume 90.9 Mean Corpuscular Hemoglobin 29.4 Mean Corpuscular Hemoglobin Concent 32.3 Red Cell Distribution Width 12.6 Platelet Count 315 Mean Platelet Volume 8.7 Immature Granulocytes % 1.100 H Neutrophils % 59.1 Lymphocytes % 25.5 Monocytes % 10.0 Eosinophils % 3.6 Basophils % 0.7 Nucleated Red Blood Cells % 0.0 Immature Granulocytes # 0.080 H Neutrophils # 4.5 Lymphocytes # 1.9 Monocytes # 0.8 Eosinophils # 0.3 Basophils # 0.1 Nucleated Red Blood Cells # 0.0 Sodium Level 140 Potassium Level 3.8 Chloride Level 104 Carbon Dioxide Level 32 H Anion Gap 4 L Blood Urea Nitrogen 9 Creatinine 1.00 Est Glomerular Filtrat Rate mL/min > 60 Glucose Level 92 Calcium Level 8.8 Subjective 24 Hr Interval Summary Free Text/Dictation Still reports pain on left hand. 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, nl mental status, nl speech Skin: other (erythema swelling on left hand ) Results Results 24hrs Laboratory Tests Test 02/08/19 20:02 02/09/19 06:00 Vancomycin Level Trough 19.5 White Blood Count 7.5 # Red Blood Count 4.19 L Hemoglobin 12.3 L Hematocrit 38.1 L Mean Corpuscular Volume 90.9 Mean Corpuscular Hemoglobin 29.4 Mean Corpuscular Hemoglobin Concent 32.3 Red Cell Distribution Width 12.6 Platelet Count 315 Mean Platelet Volume 8.7 Immature Granulocytes % 1.100 H Neutrophils % 59.1 Lymphocytes % 25.5 Monocytes % 10.0 Eosinophils % 3.6 Basophils % 0.7 Nucleated Red Blood Cells % 0.0 Immature Granulocytes # 0.080 H Neutrophils # 4.5 Lymphocytes # 1.9 Monocytes # 0.8 Eosinophils # 0.3 Basophils # 0.1 Nucleated Red Blood Cells # 0.0 Sodium Level 140 Potassium Level 3.8 Chloride Level 104 Carbon Dioxide Level 32 H Anion Gap 4 L Blood Urea Nitrogen 9 Creatinine 1.00 Est Glomerular Filtrat Rate mL/min > 60 Glucose Level 92 Calcium Level 8.8 Medications Medication Current Medications IV Flush (NS 3 ml) 3 ml PER PROTOCOL IV ; Start 02/05/19 at 15:30 Ondansetron HCl (Zofran Inj) 4 mg Q6H PRN IV NAUSEA/VOMITING; Start 02/05/19 at 15:30 Acetaminophen (Tylenol Tab) 650 mg Q6H PRN PO .PAIN 1-3 OR TEMP; Start 02/05/19 at 15:30 Enoxaparin Sodium (Lovenox) 40 mg DAILY SC ; Start 02/06/19 at 09:00 Vancomycin HCl (Vanco Iv Per Pharmacy) VANCOMYCIN PER PHARMACY PER PROTOCOL XX ; Start 02/05/19 at 15:30 Piperacillin Sod/ Tazobactam Sod 100 ml @ 200 mls/hr Q6 IVPB Last administered on 02/09/19at 13:02; Admin Dose 200 MLS/HR; Start 02/05/19 at 18:00 Nicotine (Nicoderm 14 Mg/ 24hr) 1 patch DAILY TRANSDERM ; Start 02/05/19 at 16:30 Methadone HCl (Methadone) 20 mg TID PO Last administered on 02/09/19at 13:04; Admin Dose 20 MG; Start 02/07/19 at 21:00 Acetaminophen/ Hydrocodone Bitart ([place] (5/325)) 2 tab Q6H PRN PO .MOD PAIN 4- 6; Start 02/08/19 at 09:30 Hydromorphone HCl (Dilaudid) 2 mg Q4H PRN IV SEVERE PAIN LEVEL 7-10; Start 02/08/19 at 07:30 Vancomycin/Sodium Chloride 250 ml @ 125 mls/hr Q8H IVPB Last administered on 02/09/19at 14:57; Admin Dose 125 MLS/HR; Start 02/08/19 at 22:00 Miscellaneous Information (*Rx Drug Level Order Reminder*) VANCO TROUGH 02/10 @ 0,500 0500 ONCE XX ; Start 02/10/19 at 05:00; Stop 02/10/19 at 05:01 LEIDY DENNIS NP Feb 09, 2019 15:28
[2019-02-09 20:00] VITALS: BP 128/73; PULSE 76; RESP 18
[2019-02-10] MEDS: PIPER-TAZO 3.375 GM IV (PMX) 100 ML IVPB SCH ×4 (00:51→18:13)
[2019-02-10 02:00] VITALS: BP 153/74; PULSE 65; RESP 18
--- NOTE | 2019-02-10 07:13 | PN ---
DATE: 02/09/2019 Patient claims that he is better with the IV antibiotics even though he is afebrile without any leuko cytosis at this time, repeated examination of the left hand clearly reveals a collection of the fluid over the dorsal aspect of the left hand. I feel that he needs I and D of the abscess over the dorsa l aspect of the left hand. He can be scheduled for incision and drainage of the abscess as soon as h e can be medically cleared for surgery. Dictated By: ISABEL LUNDBERG/DANY Conf#: [id number] DID#: [id number]
[2019-02-10 08:23] VITALS: BP 136/71; PULSE 59; RESP 18
[2019-02-10] MEDS: VANCOMYCIN 750 MG (PMX) 250 ML IVPB SCH ×3 (08:31→22:01)
[2019-02-10] MEDS: METHADONE 10 MG TAB PO SCH ×3 (08:34→22:00)
[2019-02-10] MEDS: ENOXAPARIN 40 MG/0.4 ML SYG SC SCH ×2 (08:38→08:48)
[2019-02-10] MEDS: NICOTINE (14 MG/24 HR) PATCH TRANSDERM SCH ×2 (08:40→08:48)
[2019-02-10] MEDS: POLYETHYLENE GLYCOL 17 GM PACKET PO SCH (11:00)
--- NOTE | 2019-02-10 11:47 | PN ---
Date/Time of Note Date/Time of Note DATE: 02/10/19 TIME: 11:44 Assessment/Plan VTE Prophylaxis Risk score (from Ns)>0 risk: 3 SCD applied (from Ns): No SCD contraindicated: other Pharmacological prophylaxis: LMWH Lines/Catheters IV Catheter Type (from Nrs): Peripheral IV Urinary Cath still in place: No Assessment/Plan Hospital Course Assessment and plan #Left hand cellulitis with abscess. MRI of left hand did show: Abscess within the dorsal hand at the level of the metacarpals over the extensor tendons in which the fluid collection also extends to surround the fourth extensor compartment tendons at the level of the carpal bones with tenosynovitis (8.2 x 4.1 x 1.3 cm). 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 Continue with antibiotics. Tentative plan for I&D of left upper extremity. f/u EKG. Patient is moderate to intermediate risk for surgery, however the benefit of surgery. make it reasonable to proceed. f/u surgeon recommendations Discussed POC with Dr. Mora Result Diagram: 02/10/19 0603 02/10/19 0603 Results 24hrs Laboratory Tests Test 02/10/19 06:03 White Blood Count 10.0 # Red Blood Count 4.55 L Hemoglobin 13.3 L Hematocrit 40.7 L Mean Corpuscular Volume 89.5 Mean Corpuscular Hemoglobin 29.2 Mean Corpuscular Hemoglobin Concent 32.7 Red Cell Distribution Width 12.6 Platelet Count 403 # Mean Platelet Volume 8.6 Immature Granulocytes % 1.600 H Neutrophils % 61.4 Lymphocytes % 23.0 Monocytes % 9.3 Eosinophils % 3.8 Basophils % 0.9 Nucleated Red Blood Cells % 0.0 Immature Granulocytes # 0.160 H Neutrophils # 6.2 Lymphocytes # 2.3 Monocytes # 0.9 Eosinophils # 0.4 Basophils # 0.1 Nucleated Red Blood Cells # 0.0 Sodium Level 141 Potassium Level 3.9 Chloride Level 102 Carbon Dioxide Level 30 Anion Gap 9 # Blood Urea Nitrogen 11 Creatinine 0.91 Est Glomerular Filtrat Rate mL/min > 60 Glucose Level 89 Calcium Level 9.1 Vancomycin Level Trough 10.6 Subjective 24 Hr Interval Summary Free Text/Dictation still with left hand pain, noted with some skin peeling Exam/Review of Systems Exam Vitals Vital Signs Date Temp Pulse Resp B/P (MAP) Pulse Ox O2 O2 Flow FiO2 Time Delivery Rate 02/10/19 98.1 59 18 136/71 98 08:23 (92) Intake and Output 02/09/19 02/09/19 02/10/19 1515:00 23:00 07:00 IntakeIntake Total 450 ml 450 ml 350 ml BalanceBalance 450 ml 450 ml 350 ml Exam Constitutional: alert, oriented Psych: nl mood/affect Head: normocephalic Neck: supple Respiratory: No wheezing Cardiovascular: other (regular rate ) Gastrointestinal: soft, non-tender Musculoskeletal: swelling (left hand ) Neurological: [employer] CONSULTANT II-XII intact, nl mental status, nl speech Skin: other (erythema swelling on left hand ) Results Results 24hrs Laboratory Tests Test 02/10/19 06:03 White Blood Count 10.0 # Red Blood Count 4.55 L Hemoglobin 13.3 L Hematocrit 40.7 L Mean Corpuscular Volume 89.5 Mean Corpuscular Hemoglobin 29.2 Mean Corpuscular Hemoglobin Concent 32.7 Red Cell Distribution Width 12.6 Platelet Count 403 # Mean Platelet Volume 8.6 Immature Granulocytes % 1.600 H Neutrophils % 61.4 Lymphocytes % 23.0 Monocytes % 9.3 Eosinophils % 3.8 Basophils % 0.9 Nucleated Red Blood Cells % 0.0 Immature Granulocytes # 0.160 H Neutrophils # 6.2 Lymphocytes # 2.3 Monocytes # 0.9 Eosinophils # 0.4 Basophils # 0.1 Nucleated Red Blood Cells # 0.0 Sodium Level 141 Potassium Level 3.9 Chloride Level 102 Carbon Dioxide Level 30 Anion Gap 9 # Blood Urea Nitrogen 11 Creatinine 0.91 Est Glomerular Filtrat Rate mL/min > 60 Glucose Level 89 Calcium Level 9.1 Vancomycin Level Trough 10.6 Medications Medication Current Medications IV Flush (NS 3 ml) 3 ml PER PROTOCOL IV ; Start 02/05/19 at 15:30 Ondansetron HCl (Zofran Inj) 4 mg Q6H PRN IV NAUSEA/VOMITING; Start 02/05/19 at 15:30 Acetaminophen (Tylenol Tab) 650 mg Q6H PRN PO .PAIN 1-3 OR TEMP; Start 02/05/19 at 15:30 Enoxaparin Sodium (Lovenox) 40 mg DAILY SC ; Start 02/06/19 at 09:00 Vancomycin HCl (Vanco Iv Per Pharmacy) VANCOMYCIN PER PHARMACY PER PROTOCOL XX ; Start 02/05/19 at 15:30 Piperacillin Sod/ Tazobactam Sod 100 ml @ 200 mls/hr Q6 IVPB Last administered on 02/10/19at 06:23; Admin Dose 200 MLS/HR; Start 02/05/19 at 18:00 Nicotine (Nicoderm 14 Mg/ 24hr) 1 patch DAILY TRANSDERM ; Start 02/05/19 at 16:30 Methadone HCl (Methadone) 20 mg TID PO Last administered on 02/10/19at 08:34; Admin Dose 20 MG; Start 02/07/19 at 21:00 Acetaminophen/ Hydrocodone Bitart ([place] (5/325)) 2 tab Q6H PRN PO .MOD PAIN 4- 6; Start 02/08/19 at 09:30 Hydromorphone HCl (Dilaudid) 2 mg Q4H PRN IV SEVERE PAIN LEVEL 7-10; Start 02/08/19 at 07:30 Vancomycin/Sodium Chloride 250 ml @ 125 mls/hr Q8H IVPB Last administered on 02/10/19at 08:31; Admin Dose 125 MLS/HR; Start 02/08/19 at 22:00 Polyethylene Glycol (Miralax) 17 gm DAILY PO ; Start 02/10/19 at 11:00 Lactulose (Enulose) 20 gm Q6 PO ; Start 02/10/19 at 12:00 LEIDY DENNIS NP Feb 10, 2019 11:47
[2019-02-10] MEDS: LACTULOSE 30ML CUP PO SCH ×2 (12:00→18:13)
--- NOTE | 2019-02-10 15:07 | CONS ---
Assessment/Plan Assessment/Plan Hospital Course (Demo Recall) SUBJECTIVE: No events, looks comfortable, no fevers overnight. Abx: IV vancomycin and Zosyn. Blood cultures negative. PHYSICAL EXAMINATION: GENERAL: This is a well-developed, middle-aged white man who is in no distress. HEENT: Head atraumatic, normocephalic. Sclerae anicteric. Buccal mucosa dry. NECK: Supple. CHEST: Rise symmetrical. Breath sounds clear. HEART: S1, S2. ABDOMEN: Soft, bowel sounds present. EXTREMITIES: Left hand significant swelling and erythema extending up to the elbow. ASSESSMENT: 1. Left hand cellulitis, possible abscess. 2. Intravenous drug abuse. 3. Homelessness. PLAN: Stable. Continue antibiotics. Pending I&D. Consultation Date/Type/Reason Admit Date/Time Feb 05, 2019 at 15:09 Initial Consult Date Type of Consult id Date/Time of Note DATE: 02/10/19 TIME: 15:06 Exam/Review of Systems Exam Vitals Vital Signs Date Temp Pulse Resp B/P (MAP) Pulse Ox O2 O2 Flow FiO2 Time Delivery Rate 02/10/19 98.1 59 18 136/71 98 08:23 (92) Intake and Output 02/09/19 02/09/19 02/10/19 1515:00 23:00 07:00 IntakeIntake Total 450 ml 450 ml 350 ml BalanceBalance 450 ml 450 ml 350 ml Results Result Diagram: 02/10/19 0603 02/10/19 0603 Results 24hrs Laboratory Tests Test 02/10/19 06:03 White Blood Count 10.0 # Red Blood Count 4.55 L Hemoglobin 13.3 L Hematocrit 40.7 L Mean Corpuscular Volume 89.5 Mean Corpuscular Hemoglobin 29.2 Mean Corpuscular Hemoglobin Concent 32.7 Red Cell Distribution Width 12.6 Platelet Count 403 # Mean Platelet Volume 8.6 Immature Granulocytes % 1.600 H Neutrophils % 61.4 Lymphocytes % 23.0 Monocytes % 9.3 Eosinophils % 3.8 Basophils % 0.9 Nucleated Red Blood Cells % 0.0 Immature Granulocytes # 0.160 H Neutrophils # 6.2 Lymphocytes # 2.3 Monocytes # 0.9 Eosinophils # 0.4 Basophils # 0.1 Nucleated Red Blood Cells # 0.0 Sodium Level 141 Potassium Level 3.9 Chloride Level 102 Carbon Dioxide Level 30 Anion Gap 9 # Blood Urea Nitrogen 11 Creatinine 0.91 Est Glomerular Filtrat Rate mL/min > 60 Glucose Level 89 Calcium Level 9.1 Vancomycin Level Trough 10.6 Medications Medication Current Medications IV Flush (NS 3 ml) 3 ml PER PROTOCOL IV ; Start 02/05/19 at 15:30 Ondansetron HCl (Zofran Inj) 4 mg Q6H PRN IV NAUSEA/VOMITING; Start 02/05/19 at 15:30 Acetaminophen (Tylenol Tab) 650 mg Q6H PRN PO .PAIN 1-3 OR TEMP; Start 02/05/19 at 15:30 Enoxaparin Sodium (Lovenox) 40 mg DAILY SC ; Start 02/06/19 at 09:00 Vancomycin HCl (Vanco Iv Per Pharmacy) VANCOMYCIN PER PHARMACY PER PROTOCOL XX ; Start 02/05/19 at 15:30 Piperacillin Sod/ Tazobactam Sod 100 ml @ 200 mls/hr Q6 IVPB Last administered on 02/10/19at 12:22; Admin Dose 200 MLS/HR; Start 02/05/19 at 18:00 Nicotine (Nicoderm 14 Mg/ 24hr) 1 patch DAILY TRANSDERM ; Start 02/05/19 at 16:30 Methadone HCl (Methadone) 20 mg TID PO Last administered on 02/10/19at 12:22; Admin Dose 20 MG; Start 02/07/19 at 21:00 Acetaminophen/ Hydrocodone Bitart ([place] (5/325)) 2 tab Q6H PRN PO .MOD PAIN 4- 6; Start 02/08/19 at 09:30 Hydromorphone HCl (Dilaudid) 2 mg Q4H PRN IV SEVERE PAIN LEVEL 7-10; Start 02/08/19 at 07:30 Vancomycin/Sodium Chloride 250 ml @ 125 mls/hr Q8H IVPB Last administered on 02/10/19at 14:14; Admin Dose 125 MLS/HR; Start 02/08/19 at 22:00 Polyethylene Glycol (Miralax) 17 gm DAILY PO ; Start 02/10/19 at 11:00 Lactulose (Enulose) 20 gm Q6 PO ; Start 02/10/19 at 12:00 ADRIENNE LOPEZ NP Feb 10, 2019 15:07
[2019-02-10 15:39] VITALS: BP 128/76; PULSE 56; RESP 17
[2019-02-10 20:00] VITALS: BP 127/67; PULSE 61; RESP 17
--- NOTE | 2019-02-10 20:54 | RADRPT ---
Echocardiogram Report Patient Name: AKR TANPatient ID: [id number] : 1990 (28y 12m)Study Date: 02/10/2019 11:27:50 AM Gender: Frannycession #: [id number] Tech: Raymundo [facility] Location: [id number]- Ref.Physician: LEIDY DENNIS Height(Cm): BSA: Weight(Kg): Quality: AdequateOrder Physician: LEIDY DENNIS Account #: Procedures: Echocardiographic Report: Transthoracic echocardiogram with complete 2D, M-Mode, and doppler examination. Indications: Cardiac Clearance. Measurements: 2D/M Mode Doppler Measurement Value Normal Range Measurement Value Normal Range LVIDd 2D 4.2 [ 4.2 - 5.8 ] cm AV Peak Alexander 1.2 [ 100.0 - 170.0 ] cm/sec LVIDs 2D 2.9 [ 2.5 - 4.0 ] cm AV Peak PG 6.0 [ 2.0 - 9.0 ] mmHg LVPWd 2D 0.9 [ 0.6 - 1.0 ] cm LVOT Peak Alexander 0.9 [ 70.0 - 110.0 ] cm/sec IVSd 2D 1.0 [ 0.6 - 1.0 ] cm LVOT Peak PG 3.0 [ 2.0 - 6.0 ] mmHg AoR Diam 2D 2.2 [ 2.6 - 3.4 ] cm MV E Peak Alexander 0.9 [ 60.0 - 130.0 ] cm/sec EDV 2D 79.0 [ 62.0 - 150.0 ] ml MV A Peak Alexander 0.4 [ 100.0 - 120.0 ] cm/sec ESV 2D 32.5 [ 21.0 - 61.0 ] ml MV E/A 2.4 [ 0.8 - 1.5 ] ratio EF 2D 58.9 [ 52.0 - 72.0 ] percent MV Decel Time 232 [ 104 - 258 ] msec LA Dimen 2D 3.1 [ 3.0 - 4.0 ] cm Lat E` Alexander 0.2 [ 10.0 - 15.0 ] cm/sec Lateral E/E` 4.8 [ 1.0 - 2.0 ] ratio Med E` Alexander 0.1 cm/sec MV E/A 2.4 [ 0.8 - 1.5 ] ratio TR Peak Alexander 2.5 [ 100.0 - 280.0 ] cm/sec TR Peak PG 26.0 mmHg RVSP 29.0 [ 10.0 - 36.0 ] mmHg Findings: Left Ventricle: Normal left ventricular systolic function. Normal left ventricular cavity size. Normal left ventricular wall thickness. Ejection fraction is visually estimated at 60 %. Tissue Doppler/Mitral Doppler indices are within normal limits. Right Ventricle: Normal right ventricular size. Normal right ventricular systolic function. Left Atrium: The left atrium is normal in size. Right Atrium: The right atrium is normal in size. Mitral Valve: Mild mitral leaflet calcification. Mild mitral annular calcification. Trace mitral regurgitation. Aortic Valve: No significant aortic stenosis or insufficiency. Aortic cusps appear mildly calcified. Tricuspid Valve: Normal appearance and function of the tricuspid valve with trace physiologic regurgitation. The estimated Peak RVSP is 29 mmHg. Pericardium: Normal pericardium with no significant pericardial effusion. Aorta: Normal aortic root. IVC: Normal size and normal respiratory collapse consistent with normal right atrial pressure. Conclusions: Normal left ventricular systolic function. Normal left ventricular cavity size. Normal left ventricular wall thickness. Ejection fraction is visually estimated at 60 %. Tissue Doppler/Mitral Doppler indices are within normal limits. Normal right ventricular size. Normal right ventricular systolic function. No significant valvular stenosis or regurgitation seen. Normal pericardium with no significant pericardial effusion. Electronically Signed By: Malachi Lynn 2019-02-10 17:15:36 PDT
--- NOTE | 2019-02-10 20:55 | RADRPT ---
Vent Rate: 60 bpm RR Interval: 996 msec [place] Interval: 160 msec QRS Duration: 95 msec QT Interval: 446 msec QTC Interval: 447 msec P-R-T [place]: 51 - 78 - 69 degrees Sinus rhythm...normal P axis, V-rate 50- 99 Electronically Signed By: Malachi Lynn
[2019-02-11] MEDS: PIPER-TAZO 3.375 GM IV (PMX) 100 ML IVPB SCH ×4 (01:17→17:55)
[2019-02-11 02:00] VITALS: BP 138/63; PULSE 56; RESP 17
[2019-02-11] MEDS: LACTULOSE 30ML CUP PO SCH ×4 (05:57→17:55)
[2019-02-11] MEDS: VANCOMYCIN 750 MG (PMX) 250 ML IVPB SCH ×3 (06:46→22:14)
[2019-02-11 07:30] VITALS: BP 132/61; PULSE 62; RESP 16
[2019-02-11] MEDS: METHADONE 10 MG TAB PO SCH ×4 (08:24→23:27)
[2019-02-11] MEDS: POLYETHYLENE GLYCOL 17 GM PACKET PO SCH (08:25)
[2019-02-11] MEDS: ENOXAPARIN 40 MG/0.4 ML SYG SC SCH (08:26)
[2019-02-11] MEDS: NICOTINE (14 MG/24 HR) PATCH TRANSDERM SCH (08:26)
--- NOTE | 2019-02-11 12:12 | CONS ---
Assessment/Plan Assessment/Plan Hospital Course (Demo Recall) SUBJECTIVE: No acute events, looks comfortable Abx: IV vancomycin and Zosyn. Blood cultures negative. PHYSICAL EXAMINATION: GENERAL: This is a well-developed, middle-aged white man who is in no distress. HEENT: Head atraumatic, normocephalic. Sclerae anicteric. Buccal mucosa dry. NECK: Supple. CHEST: Rise symmetrical. Breath sounds clear. HEART: S1, S2. ABDOMEN: Soft, bowel sounds present. EXTREMITIES: Left hand significant swelling and erythema extending up to the elbow. ASSESSMENT: 1. Left hand cellulitis, possible abscess. 2. Intravenous drug abuse. 3. Homelessness. PLAN: Stable. Continue antibiotics. Pending I&D. Consultation Date/Type/Reason Admit Date/Time Feb 05, 2019 at 15:09 Initial Consult Date Type of Consult id Date/Time of Note DATE: 02/11/19 TIME: 12:12 Exam/Review of Systems Exam Vitals Vital Signs Date Temp Pulse Resp B/P (MAP) Pulse Ox O2 O2 Flow FiO2 Time Delivery Rate 02/11/19 98.1 62 16 132/61 96 Room Air 07:30 (84) Intake and Output 02/10/19 02/10/19 02/11/19 1515:00 23:00 07:00 IntakeIntake Total 1330 ml 850 ml 450 ml OutputOutput Total 1800 ml 400 ml BalanceBalance -470 ml 450 ml 450 ml Results Result Diagram: 02/11/19 0532 02/11/19 0532 Results 24hrs Laboratory Tests Test 02/11/19 05:32 White Blood Count 8.4 Red Blood Count 4.56 L Hemoglobin 13.5 L Hematocrit 41.3 L Mean Corpuscular Volume 90.6 Mean Corpuscular Hemoglobin 29.6 Mean Corpuscular Hemoglobin Concent 32.7 Red Cell Distribution Width 12.8 Platelet Count 394 Mean Platelet Volume 8.8 Immature Granulocytes % 2.600 H Neutrophils % 58.7 Lymphocytes % 23.5 Monocytes % 9.8 Eosinophils % 4.3 Basophils % 1.1 Nucleated Red Blood Cells % 0.0 Immature Granulocytes # 0.220 H Neutrophils # 5.0 Lymphocytes # 2.0 Monocytes # 0.8 Eosinophils # 0.4 Basophils # 0.1 Nucleated Red Blood Cells # 0.0 Sodium Level 141 Potassium Level 4.3 Chloride Level 102 Carbon Dioxide Level 32 H Anion Gap 7 Blood Urea Nitrogen 14 Creatinine 1.02 Est Glomerular Filtrat Rate mL/min > 60 Glucose Level 86 Calcium Level 9.5 Medications Medication Current Medications IV Flush (NS 3 ml) 3 ml PER PROTOCOL IV ; Start 02/05/19 at 15:30 Ondansetron HCl (Zofran Inj) 4 mg Q6H PRN IV NAUSEA/VOMITING; Start 02/05/19 at 15:30 Acetaminophen (Tylenol Tab) 650 mg Q6H PRN PO .PAIN 1-3 OR TEMP; Start 02/05/19 at 15:30 Enoxaparin Sodium (Lovenox) 40 mg DAILY SC ; Start 02/06/19 at 09:00 Vancomycin HCl (Vanco Iv Per Pharmacy) VANCOMYCIN PER PHARMACY PER PROTOCOL XX ; Start 02/05/19 at 15:30 Piperacillin Sod/ Tazobactam Sod 100 ml @ 200 mls/hr Q6 IVPB Last administered on 02/11/19at 11:53; Admin Dose 200 MLS/HR; Start 02/05/19 at 18:00 Nicotine (Nicoderm 14 Mg/ 24hr) 1 patch DAILY TRANSDERM ; Start 02/05/19 at 16:30 Methadone HCl (Methadone) 20 mg TID PO Last administered on 02/11/19at 08:24; Admin Dose 20 MG; Start 02/07/19 at 21:00 Acetaminophen/ Hydrocodone Bitart ([place] (5/325)) 2 tab Q6H PRN PO .MOD PAIN 4- 6; Start 02/08/19 at 09:30 Hydromorphone HCl (Dilaudid) 2 mg Q4H PRN IV SEVERE PAIN LEVEL 7-10; Start 02/08/19 at 07:30 Vancomycin/Sodium Chloride 250 ml @ 125 mls/hr Q8H IVPB Last administered on 02/11/19at 06:46; Admin Dose 125 MLS/HR; Start 02/08/19 at 22:00 Polyethylene Glycol (Miralax) 17 gm DAILY PO ; Start 02/10/19 at 11:00 Lactulose (Enulose) 20 gm Q6 PO Last administered on 02/10/19at 18:13; Admin Dose 20 GM; Start 02/10/19 at 12:00 ADRIENNE FUENTES NP Feb 11, 2019 12:12
--- NOTE | 2019-02-11 12:16 | PN ---
Date/Time of Note Date/Time of Note DATE: 02/11/19 TIME: 12:14 Assessment/Plan VTE Prophylaxis Risk score (from Ns)>0 risk: 1 SCD applied (from Ns): No SCD contraindicated: other Pharmacological prophylaxis: LMWH Lines/Catheters IV Catheter Type (from Nrs): Peripheral IV Urinary Cath still in place: No Assessment/Plan Hospital Course Assessment and plan #Left hand cellulitis with abscess. MRI of left hand did show: Abscess within the dorsal hand at the level of the metacarpals over the extensor tendons in which the fluid collection also extends to surround the fourth extensor compartment tendons at the level of the carpal bones with tenosynovitis (8.2 x 4.1 x 1.3 cm). 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 Awaiting for I&D per surgeon. Will follow up Discussed POC with Dr. Mora Result Diagram: 02/11/19 0532 02/11/19 0532 Results 24hrs Laboratory Tests Test 02/11/19 05:32 White Blood Count 8.4 Red Blood Count 4.56 L Hemoglobin 13.5 L Hematocrit 41.3 L Mean Corpuscular Volume 90.6 Mean Corpuscular Hemoglobin 29.6 Mean Corpuscular Hemoglobin Concent 32.7 Red Cell Distribution Width 12.8 Platelet Count 394 Mean Platelet Volume 8.8 Immature Granulocytes % 2.600 H Neutrophils % 58.7 Lymphocytes % 23.5 Monocytes % 9.8 Eosinophils % 4.3 Basophils % 1.1 Nucleated Red Blood Cells % 0.0 Immature Granulocytes # 0.220 H Neutrophils # 5.0 Lymphocytes # 2.0 Monocytes # 0.8 Eosinophils # 0.4 Basophils # 0.1 Nucleated Red Blood Cells # 0.0 Sodium Level 141 Potassium Level 4.3 Chloride Level 102 Carbon Dioxide Level 32 H Anion Gap 7 Blood Urea Nitrogen 14 Creatinine 1.02 Est Glomerular Filtrat Rate mL/min > 60 Glucose Level 86 Calcium Level 9.5 Subjective 24 Hr Interval Summary Free Text/Dictation seen ambulating in room. still with left hand pain. Exam/Review of Systems Exam Vitals Vital Signs Date Temp Pulse Resp B/P (MAP) Pulse Ox O2 O2 Flow FiO2 Time Delivery Rate 02/11/19 98.1 62 16 132/61 96 Room Air 07:30 (84) Intake and Output 02/10/19 02/10/19 02/11/19 1515:00 23:00 07:00 IntakeIntake Total 1330 ml 850 ml 450 ml OutputOutput Total 1800 ml 400 ml BalanceBalance -470 ml 450 ml 450 ml Exam Constitutional: alert, oriented Psych: nl mood/affect Head: normocephalic Neck: supple Respiratory: No wheezing Cardiovascular: other (regular rate ) Gastrointestinal: soft, non-tender Musculoskeletal: swelling (left hand ) Neurological: X RAY INSPECTOR II-XII intact, nl mental status, nl speech Skin: other (erythema swelling on left hand ) Results Results 24hrs Laboratory Tests Test 02/11/19 05:32 White Blood Count 8.4 Red Blood Count 4.56 L Hemoglobin 13.5 L Hematocrit 41.3 L Mean Corpuscular Volume 90.6 Mean Corpuscular Hemoglobin 29.6 Mean Corpuscular Hemoglobin Concent 32.7 Red Cell Distribution Width 12.8 Platelet Count 394 Mean Platelet Volume 8.8 Immature Granulocytes % 2.600 H Neutrophils % 58.7 Lymphocytes % 23.5 Monocytes % 9.8 Eosinophils % 4.3 Basophils % 1.1 Nucleated Red Blood Cells % 0.0 Immature Granulocytes # 0.220 H Neutrophils # 5.0 Lymphocytes # 2.0 Monocytes # 0.8 Eosinophils # 0.4 Basophils # 0.1 Nucleated Red Blood Cells # 0.0 Sodium Level 141 Potassium Level 4.3 Chloride Level 102 Carbon Dioxide Level 32 H Anion Gap 7 Blood Urea Nitrogen 14 Creatinine 1.02 Est Glomerular Filtrat Rate mL/min > 60 Glucose Level 86 Calcium Level 9.5 Medications Medication Current Medications IV Flush (NS 3 ml) 3 ml PER PROTOCOL IV ; Start 02/05/19 at 15:30 Ondansetron HCl (Zofran Inj) 4 mg Q6H PRN IV NAUSEA/VOMITING; Start 02/05/19 at 15:30 Acetaminophen (Tylenol Tab) 650 mg Q6H PRN PO .PAIN 1-3 OR TEMP; Start 02/05/19 at 15:30 Enoxaparin Sodium (Lovenox) 40 mg DAILY SC ; Start 02/06/19 at 09:00 Vancomycin HCl (Vanco Iv Per Pharmacy) VANCOMYCIN PER PHARMACY PER PROTOCOL XX ; Start 02/05/19 at 15:30 Piperacillin Sod/ Tazobactam Sod 100 ml @ 200 mls/hr Q6 IVPB Last administered on 02/11/19at 11:53; Admin Dose 200 MLS/HR; Start 02/05/19 at 18:00 Nicotine (Nicoderm 14 Mg/ 24hr) 1 patch DAILY TRANSDERM ; Start 02/05/19 at 16:30 Methadone HCl (Methadone) 20 mg TID PO Last administered on 02/11/19at 08:24; Admin Dose 20 MG; Start 02/07/19 at 21:00 Acetaminophen/ Hydrocodone Bitart ([place] (5/325)) 2 tab Q6H PRN PO .MOD PAIN 4- 6; Start 02/08/19 at 09:30 Hydromorphone HCl (Dilaudid) 2 mg Q4H PRN IV SEVERE PAIN LEVEL 7-10; Start 02/08/19 at 07:30 Vancomycin/Sodium Chloride 250 ml @ 125 mls/hr Q8H IVPB Last administered on 02/11/19at 06:46; Admin Dose 125 MLS/HR; Start 02/08/19 at 22:00 Polyethylene Glycol (Miralax) 17 gm DAILY PO ; Start 02/10/19 at 11:00 Lactulose (Enulose) 20 gm Q6 PO Last administered on 02/10/19at 18:13; Admin Dose 20 GM; Start 02/10/19 at 12:00 LEIDY DENNIS NP Feb 11, 2019 12:16
[2019-02-11 14:29] VITALS: BP 111/59; PULSE 51; RESP 16
[2019-02-11 20:33] VITALS: BP 130/66; PULSE 60; RESP 18
[2019-02-12] VITALS (17 sets, daily range): BP systolic 106–145; BP diastolic 50–79; PULSE 53–72; RESP 15–20
[2019-02-12] MEDS: PIPER-TAZO 3.375 GM IV (PMX) 100 ML IVPB SCH ×6 (01:04→20:19)
[2019-02-12] MEDS: LACTULOSE 30ML CUP PO SCH ×5 (07:00→23:57)
[2019-02-12] MEDS: METHADONE 10 MG TAB PO SCH ×3 (08:52→20:19)
[2019-02-12] MEDS: POLYETHYLENE GLYCOL 17 GM PACKET PO SCH (08:52)
[2019-02-12] MEDS: ENOXAPARIN 40 MG/0.4 ML SYG SC SCH (08:52)
[2019-02-12] MEDS: NICOTINE (14 MG/24 HR) PATCH TRANSDERM SCH (08:52)
[2019-02-12] MEDS: VANCOMYCIN 750 MG (PMX) 250 ML IVPB SCH ×2 (09:00→16:30)
[2019-02-12] MEDS ORDERED: BACITRACIN 50000 UNITS INJ ONE (12:12)
[2019-02-12] MEDS ORDERED: POLYMYXIN B 500000 UNIT INJ ONE (12:17)
[2019-02-12] MEDS ORDERED: HYDROGEN PEROXIDE 118 ML ONE (12:33)
--- NOTE | 2019-02-12 12:59 | PREAC ---
Date/Time of Note Date/Time of Note DATE: 02/12/19 TIME: 12:56 Anesthesia Eval and Record Evaluation Time Pre-Procedure Interview DATE: 02/12/19 TIME: 12:56 Age 28 Sex male NPO: 8 hrs Preoperative diagnosis left hand abscess Planned procedure Incision and debridement of abscess of the left hand Past Medical History Past Medical History: Includes Recreational drugs: Other (methamphetamines) Surgery & Anesthesia Issues No known issue Meds Anticoagulation: No Beta Alissa within 24 hr: No Reason Beta Alissa not given: Pt. not on B-Alissa No Active Prescriptions or Reported Meds Current Medications IV Flush (NS 3 ml) 3 ml PER PROTOCOL IV ; Start 02/05/19 at 15:30 Ondansetron HCl (Zofran Inj) 4 mg Q6H PRN IV NAUSEA/VOMITING; Start 02/05/19 at 15:30 Acetaminophen (Tylenol Tab) 650 mg Q6H PRN PO .PAIN 1-3 OR TEMP; Start 02/05/19 at 15:30 Enoxaparin Sodium (Lovenox) 40 mg DAILY SC ; Start 02/06/19 at 09:00 Vancomycin HCl (Vanco Iv Per Pharmacy) VANCOMYCIN PER PHARMACY PER PROTOCOL XX ; Start 02/05/19 at 15:30 Nicotine (Nicoderm 14 Mg/ 24hr) 1 patch DAILY TRANSDERM Last administered on 02/12/19at 08:52; Admin Dose 1 PATCH; Start 02/05/19 at 16:30 Methadone HCl (Methadone) 20 mg TID PO Last administered on 02/12/19at 08:52; Admin Dose 20 MG; Start 02/07/19 at 21:00 Acetaminophen/ Hydrocodone Bitart ([place] (5/325)) 2 tab Q6H PRN PO .MOD PAIN 4- 6; Start 02/08/19 at 09:30 Hydromorphone HCl (Dilaudid) 2 mg Q4H PRN IV SEVERE PAIN LEVEL 7-10; Start 02/08/19 at 07:30 Polyethylene Glycol (Miralax) 17 gm DAILY PO ; Start 02/10/19 at 11:00 Lactulose (Enulose) 20 gm Q6 PO Last administered on 02/11/19at 17:55; Admin Dose 20 GM; Start 02/10/19 at 12:00 Piperacillin Sod/ Tazobactam Sod 100 ml @ 200 mls/hr Q6H IVPB Last adm inistered on 02/12/19at 00:00; Start 02/12/19 at 08:00 Vancomycin/Sodium Chloride 250 ml @ 125 mls/hr Q8H IVPB Last administered on 02/12/19at 09:00; Admin Dose 125 MLS/HR; Start 02/12/19 at 09:00 Meds reviewed: Yes Allergies Coded Allergies: cortisone (Verified Allergy, Mild, 02/05/19) Allergies Reviewed: Yes Labs/Studies Labs Reviewed: Reviewed by anesthesiologist Result Diagram: 02/12/19 0620 02/12/19 0620 Laboratory Tests 02/12/19 06:20 test: N/A Studies: 2D Echo Pre-procedure Exam Last vitals Vital Signs Date Temp Pulse Resp B/P (MAP) Pulse Ox O2 O2 Flow FiO2 Time Delivery Rate 02/12/19 97.7 53 16 115/66 100 Room Air 07:28 (82) Airway: Adequate mouth opening, Adequate thyromental dist Mallampati: Mallampati II Teeth: Normal Lung: Normal Heart: Normal ASA Physical Status ASA physical status: 2 Emergency: None Planned Anesthetic General/MAC: LMA Planned Pain Management Parenteral pain med Pre-operative Attestations Prior to commencing anesthesia and surgery, the patient was re-evaluated, there was verification of: *The patient's identity *The results of appropriate recent lab work and preoperative vital signs *The above evaluation not changing prior to induction *Anesthetic plan, risk benefits, alternative and complications discussed with patient/family; questions answered; patient/family understands, accepts and wishes to proceed. MOLLY HIGGINS MD Feb 12, 2019 12:59
[2019-02-12] MEDS ORDERED: MIDAZOLAM 1 MG/ML 2 ML INJ ONE (13:21)
[2019-02-12] MEDS ORDERED: LIDOCAINE 2% (SDV) 5 ML INJ ONE (13:21)
[2019-02-12] MEDS ORDERED: PROPOFOL 20 ML ONE ×2 (13:21→13:41)
--- NOTE | 2019-02-12 13:21 | HPN ---
Date/Time of Note Date/Time of Note DATE: 02/12/19 TIME: 13:20 Interval H&P Admission Note Pt. seen H&P reviewed: No system changes NOGC TATUM MD Feb 12, 2019 13:21
--- NOTE | 2019-02-12 13:31 | PN ---
Date/Time of Note Date/Time of Note DATE: 02/12/19 TIME: 13:27 Assessment/Plan VTE Prophylaxis Risk score (from Ns)>0 risk: 1 SCD applied (from Ns): No SCD contraindicated: other Pharmacological prophylaxis: NA/contraindicated Pharm contraindication: low risk/ambulating Lines/Catheters [facility]from [facility]): Peripheral IV Urinary Cath still in place: No Assessment/Plan Hospital Course Assessment and plan #Left hand cellulitis with abscess. MRI of left hand did show: Abscess within the dorsal hand at the level of the metacarpals over the extensor tendons in which the fluid collection also extends to surround the fourth extensor compartment tendons at the level of the carpal bones with tenosynovitis (8.2 x 4.1 x 1.3 cm). 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 Plan for I&D per surgeon today. will f/u postop care Discussed POC with Dr. Mora Result Diagram: 02/12/19 0620 02/12/19 0620 Results 24hrs Laboratory Tests Test 02/12/19 06:20 White Blood Count 7.8 Red Blood Count 4.67 L Hemoglobin 13.9 L Hematocrit 42.7 Mean Corpuscular Volume 91.4 Mean Corpuscular Hemoglobin 29.8 Mean Corpuscular Hemoglobin Concent 32.6 Red Cell Distribution Width 12.8 Platelet Count 418 H Mean Platelet Volume 8.6 Immature Granulocytes % 3.700 H Neutrophils % 49.7 Lymphocytes % 28.6 Monocytes % 10.7 Eosinophils % 6.0 Basophils % 1.3 Nucleated Red Blood Cells % 0.0 Immature Granulocytes # 0.290 H Neutrophils # 3.9 Lymphocytes # 2.2 Monocytes # 0.8 Eosinophils # 0.5 Basophils # 0.1 Nucleated Red Blood Cells # 0.0 Sodium Level 141 Potassium Level 4.8 Chloride Level 102 Carbon Dioxide Level 29 Anion Gap 10 Blood Urea Nitrogen 15 Creatinine 1.03 Est Glomerular Filtrat Rate mL/min > 60 Glucose Level 87 Calcium Level 9.7 Subjective 24 Hr Interval Summary Free Text/Dictation was seen in room in the morning. no s/s of distress Exam/Review of Systems Exam Vitals Vital Signs Date Temp Pulse Resp B/P (MAP) Pulse Ox O2 O2 Flow FiO2 Time Delivery Rate 02/12/19 97.7 53 16 115/66 100 Room Air 07:28 (82) Intake and Output 02/11/19 02/11/19 02/12/19 1515:00 23:00 07:00 IntakeIntake Total 350 ml 850 ml 350 ml BalanceBalance 350 ml 850 ml 350 ml Exam Constitutional: alert, oriented Psych: nl mood/affect Head: normocephalic Neck: supple Respiratory: No wheezing Cardiovascular: other (regular rate ) Gastrointestinal: soft, non-tender Musculoskeletal: swelling (left hand ) Neurological: ROD DRAWER II-XII intact, nl mental status, nl speech Skin: other (erythema swelling on left hand ) Results Results 24hrs Laboratory Tests Test 02/12/19 06:20 White Blood Count 7.8 Red Blood Count 4.67 L Hemoglobin 13.9 L Hematocrit 42.7 Mean Corpuscular Volume 91.4 Mean Corpuscular Hemoglobin 29.8 Mean Corpuscular Hemoglobin Concent 32.6 Red Cell Distribution Width 12.8 Platelet Count 418 H Mean Platelet Volume 8.6 Immature Granulocytes % 3.700 H Neutrophils % 49.7 Lymphocytes % 28.6 Monocytes % 10.7 Eosinophils % 6.0 Basophils % 1.3 Nucleated Red Blood Cells % 0.0 Immature Granulocytes # 0.290 H Neutrophils # 3.9 Lymphocytes # 2.2 Monocytes # 0.8 Eosinophils # 0.5 Basophils # 0.1 Nucleated Red Blood Cells # 0.0 Sodium Level 141 Potassium Level 4.8 Chloride Level 102 Carbon Dioxide Level 29 Anion Gap 10 Blood Urea Nitrogen 15 Creatinine 1.03 Est Glomerular Filtrat Rate mL/min > 60 Glucose Level 87 Calcium Level 9.7 Medications Medication Current Medications IV Flush (NS 3 ml) 3 ml PER PROTOCOL IV ; Start 02/05/19 at 15:30 Ondansetron HCl (Zofran Inj) 4 mg Q6H PRN IV NAUSEA/VOMITING; Start 02/05/19 at 15:30 Acetaminophen (Tylenol Tab) 650 mg Q6H PRN PO .PAIN 1-3 OR TEMP; Start 02/05/19 at 15:30 Enoxaparin Sodium (Lovenox) 40 mg DAILY SC ; Start 02/06/19 at 09:00 Vancomycin HCl (Vanco Iv Per Pharmacy) VANCOMYCIN PER PHARMACY PER PROTOCOL XX ; Start 02/05/19 at 15:30 Nicotine (Nicoderm 14 Mg/ 24hr) 1 patch DAILY TRANSDERM Last administered on 02/12/19at 08:52; Admin Dose 1 PATCH; Start 02/05/19 at 16:30 Methadone HCl (Methadone) 20 mg TID PO Last administered on 02/12/19at 08:52; Admin Dose 20 MG; Start 02/07/19 at 21:00 Acetaminophen/ Hydrocodone Bitart ([place] (5/325)) 2 tab Q6H PRN PO .MOD PAIN 4- 6; Start 02/08/19 at 09:30 Hydromorphone HCl (Dilaudid) 2 mg Q4H PRN IV SEVERE PAIN LEVEL 7-10; Start 02/08/19 at 07:30 Polyethylene Glycol (Miralax) 17 gm DAILY PO ; Start 02/10/19 at 11:00 Lactulose (Enulose) 20 gm Q6 PO Last administered on 02/11/19at 17:55; Admin Dose 20 GM; Start 02/10/19 at 12:00 Piperacillin Sod/ Tazobactam Sod 100 ml @ 200 mls/hr Q6H IVPB Last administered on 02/12/19at 00:00; Start 02/12/19 at 08:00 Vancomycin/Sodium Chloride 250 ml @ 125 mls/hr Q8H IVPB Last administered on 02/12/19at 09:00; Admin Dose 125 MLS/HR; Start 02/12/19 at 09:00 LEIDY DENNIS NP Feb 12, 2019 13:31
[2019-02-12] MEDS ORDERED: FAMOTIDINE 20 MG INJ ONE (13:39)
[2019-02-12] MEDS ORDERED: ONDANSETRON 4 MG INJ ONE (13:39)
[2019-02-12] MEDS ORDERED: DIPHENHYDRAMINE 50 MG INJ IV PRN (14:00)
[2019-02-12] MEDS ORDERED: HYDROmorphONE 1 MG/5 ML IV SYRINGE IV PRN ×3 (14:00)
[2019-02-12] MEDS ORDERED: PROCHLORPERAZINE 10 MG INJ IV PRN (14:00)
[2019-02-12] MEDS ORDERED: ONDANSETRON 4 MG INJ IV PRN (14:00)
[2019-02-12] MEDS ORDERED: FENTAnyl 50 MCG/ML VIAL IV PRN (14:00)
[2019-02-12] MEDS ORDERED: MEPERIDINE 25 MG INJ IV PRN (14:00)
--- NOTE | 2019-02-12 14:21 | PAC ---
Date/Time of Note Date/Time of Note DATE: 02/12/19 TIME: 14:20 Post-Anesthesia Notes Post-Anesthesia Note Last documented vital signs Vital Signs Date Temp Pulse Resp B/P (MAP) Pulse Ox O2 O2 Flow FiO2 Time Delivery Rate 02/12/19 98.0 14:06 02/12/19 53 16 115/66 100 Room Air 07:28 (82) Activity: WNL Respiratory function: WNL Cardiovascular function: WNL Mental status: Baseline Pain reasonably controlled: Yes Hydration appropriate: Yes Nausea/Vomiting absent: Yes Comments BP: 122/54 HR: 67 RR: 15 T: 98 SaO2: 98% MOLLY HIGGINS MD Feb 12, 2019 14:21
[2019-02-12] MEDS ORDERED: NACL 0.9% 3 ML SYG IV SCH (14:30)
[2019-02-12] MEDS ORDERED: HYDROCODONE/APAP (5/325) TAB PO PRN (14:30)
[2019-02-12] MEDS ORDERED: morphine 4 MG/ML VIAL IV PRN (14:30)
--- NOTE | 2019-02-12 14:38 | SIPON ---
Date/Time of Note Date/Time of Note DATE: 02/12/19 TIME: 14:27 Operative Report Preoperative Diagnosis abcess and cellulitis left hand Postoperative Diagnosis same Operation/Procedure Performed incision & drainage, irrigation debridment abcess lsft hand Surgeon see signature line computer assistant none Anesthesia: general Estimated blood loss: minimal Transfusion Required none Specimen specieman for C&S Grafts/Implants none Complications none NGOC TATUM MD Feb 12, 2019 14:38
[2019-02-12] MEDS: D5W-0.45 NACL + KCL 20 MEQ 1,000 ML IV SCH ×2 (15:32→23:57)
--- NOTE | 2019-02-12 17:08 | CONS ---
Assessment/Plan Assessment/Plan Hospital Course (Demo Recall) ID PROGRESS NOTE CURRENT ABX: DAY # => VANCO IV + ZOSYN 02/12/19 0620 02/12/19 0620 24H INTERVAL SUMMARY * POD #0 --> DATE: 02/12/19: Incision & drainage, irrigation debridement abscess left hand * Doing well post operative, ambulatory in room, voiding, now resting, no fevers DIAGNOSTIC IMAGING * 02/06/19 MRI LEFT HAND: 1. Abscess within the dorsal hand at the level of the metacarpals over the extensor tendons in which the fluid collection also extends to surround the fourth extensor compartment tendons at the level of the carpal bones with tenosynovitis (8.2 x 4.1 x 1.3 cm). Marked soft tissue swelling within the dorsal hand which from cellulitis/soft tissue infection.2. Another smaller abscess dorsal to the fourth metacarpophalangeal joint measuring up to 1.2 cm.3. No acute fracture or bony destructive changes within the hand.4. Micro metallic artifact within the soft tissues volar to the first metacarpal limiting evaluation of the first metacarpal and metacarpophalangeal joint. MICRO * 02/06/19 BCX (-); (-)MRSA PHYSICAL EXAMINATION: GENERAL: VSS, NAD HEENT: AT, NC, NECK: Supple, CHEST: Rise symmetrical HEART: Pulse RRR ABDOMEN: EXTREMITIES: Warm, dry == LEFT HAND DSG C/D/I SKIN: No rash, no diaphoresis ID ASSESSMENT 28 yo M admit with: 1. Left hand cellulitis, possible abscess. 2. Intravenous drug abuse. 3. Homelessness. (-) MRSA Nares ABX ALLERGIES: None to ABX INVASIVES: CURRENT ABX: DAY # => VANCO IV + ZOSYN ID RECOMMENDATIONS/PLAN: 1. Continue ABX 2. Dr. Reveles to change DSG -- otherwise leave DSG in place. . Consultation Date/Type/Reason Admit Date/Time Feb 05, 2019 at 15:09 Initial Consult Date Date/Time of Note DATE: 02/12/19 TIME: 17:08 Exam/Review of Systems Exam Vitals Vital Signs Date Temp Pulse Resp B/P (MAP) Pulse Ox O2 O2 Flow FiO2 Time Delivery Rate 02/12/19 97.5 65 138/79 98 Room Air 15:45 (98) 02/12/19 18 2.0 15:15 Intake and Output 02/11/19 02/11/19 02/12/19 1515:00 23:00 07:00 IntakeIntake Total 350 ml 850 ml 350 ml BalanceBalance 350 ml 850 ml 350 ml Results Result Diagram: 02/12/19 0620 02/12/19 0620 Results 24hrs Laboratory Tests Test 02/12/19 06:20 White Blood Count 7.8 Red Blood Count 4.67 L Hemoglobin 13.9 L Hematocrit 42.7 Mean Corpuscular Volume 91.4 Mean Corpuscular Hemoglobin 29.8 Mean Corpuscular Hemoglobin Concent 32.6 Red Cell Distribution Width 12.8 Platelet Count 418 H Mean Platelet Volume 8.6 Immature Granulocytes % 3.700 H Neutrophils % 49.7 Lymphocytes % 28.6 Monocytes % 10.7 Eosinophils % 6.0 Basophils % 1.3 Nucleated Red Blood Cells % 0.0 Immature Granulocytes # 0.290 H Neutrophils # 3.9 Lymphocytes # 2.2 Monocytes # 0.8 Eosinophils # 0.5 Basophils # 0.1 Nucleated Red Blood Cells # 0.0 Sodium Level 141 Potassium Level 4.8 Chloride Level 102 Carbon Dioxide Level 29 Anion Gap 10 Blood Urea Nitrogen 15 Creatinine 1.03 Est Glomerular Filtrat Rate mL/min > 60 Glucose Level 87 Calcium Level 9.7 Medications Medication Current Medications IV Flush (NS 3 ml) 3 ml PER PROTOCOL IV ; Start 02/05/19 at 15:30 Ondansetron HCl (Zofran Inj) 4 mg Q6H PRN IV NAUSEA/VOMITING; Start 02/05/19 at 15:30 Acetaminophen (Tylenol Tab) 650 mg Q6H PRN PO .PAIN 1-3 OR TEMP; Start 02/05/19 at 15:30 Enoxaparin Sodium (Lovenox) 40 mg DAILY SC ; Start 02/06/19 at 09:00 Vancomycin HCl (Vanco Iv Per Pharmacy) VANCOMYCIN PER PHARMACY PER PROTOCOL XX ; Start 02/05/19 at 15:30 Nicotine (Nicoderm 14 Mg/ 24hr) 1 patch DAILY TRANSDERM Last administered on 02/12/19at 08:52; Admin Dose 1 PATCH; Start 02/05/19 at 16:30 Methadone HCl (Methadone) 20 mg TID PO Last administered on 02/12/19at 08:52; Admin Dose 20 MG; Start 02/07/19 at 21:00 Acetaminophen/ Hydrocodone Bitart ([place] (5/325)) 2 tab Q6H PRN PO .MOD PAIN 4- 6; Start 02/08/19 at 09:30 Hydromorphone HCl (Dilaudid) 2 mg Q4H PRN IV SEVERE PAIN LEVEL 7-10; Start 02/08/19 at 07:30 Polyethylene Glycol (Miralax) 17 gm DAILY PO ; Start 02/10/19 at 11:00 Lactulose (Enulose) 20 gm Q6 PO Last administered on 02/11/19at 17:55; Admin Dose 20 GM; Start 02/10/19 at 12:00 Piperacillin Sod/ Tazobactam Sod 100 ml @ 200 mls/hr Q6H IVPB Last administered on 02/12/19at 13:20; Start 02/12/19 at 08:00 Vancomycin/Sodium Chloride 250 ml @ 125 mls/hr Q8H IVPB Last administered on 02/12/19at 16:30; Admin Dose 125 MLS/HR; Start 02/12/19 at 09:00 Hydromorphone HCl (Dilaudid) 0.2 mg PACU PRN IV MILD PAIN 1-3; Start 02/12/19 at 14:00; Stop 02/12/19 at 20:00 Hydromorphone HCl (Dilaudid) 0.4 mg PACU PRN IV MOD PAIN 4-6; Start 02/12/19 at 14:00; Stop 02/12/19 at 20:00 Hydromorphone HCl (Dilaudid) 0.6 mg PACU PRN IV SEVERE PAIN 7-10; Start 02/12/19 at 14:00; Stop 02/12/19 at 20:00 Fentanyl (Sublimaze) 25 mcg PACU ORDER PRN IV MILD PAIN 1-3; Start 02/12/19 at 14:00; Stop 02/12/19 at 20:00 Ondansetron HCl (Zofran Inj) 4 mg PACU ORDER PRN IV NAUSEA/VOMITING; Start 02/12/19 at 14:00; Stop 02/12/19 at 20:00 Prochlorperazine (Compazine Inj) 5 mg PACU ORDER PRN IV NAUSEA/VOMITING; Start 02/12/19 at 14:00; Stop 02/12/19 at 20:00 Meperidine HCl (Demerol) 25 mg PACU ORDER PRN IV .RIGORS; Start 02/12/19 at 14:00; Stop 02/12/19 at 20:00 Diphenhydramine HCl (Benadryl) 25 mg PACU ORDER PRN IV .PRURITUS; Start 02/12/19 at 14:00; Stop 02/12/19 at 20:00 IV Flush (NS 3 ml) 3 ml PER PROTOCOL IV ; Start 02/12/19 at 14:30 Potassium Chloride/Dextrose/ Sod Cl 1,000 ml @ 100 mls/hr Q10H IV Last administered on 02/12/19at 15:32; Admin Dose 100 MLS/HR; Start 02/12/19 at 14:08 Morphine Sulfate (morphine) 3 mg Q4H PRN IV SEVERE PAIN LEVEL 7-10; Start 02/12/19 at 14:30 Acetaminophen/ Hydrocodone Bitart ([place] (5/325)) 1 tab Q3H PRN PO MODERATE PAIN LEVEL 4-6; Start 02/12/19 at 14:30 SJ PEREZ NP Feb 12, 2019 17:08
--- NOTE | 2019-02-12 23:20 | OPR ---
DATE OF OPERATION: 02/12/2019 PREOPERATIVE DIAGNOSIS: Abscess with cellulitis involving the dorsum of the left hand. POSTOPERATIVE DIAGNOSIS: Abscess with cellulitis involving the dorsum of the left hand. OPERATION PERFORMED: I and D of abscess over the dorsum of the left hand. ANESTHESIA: General anesthesia. SURGEON: Isabel Reveles MD PROCEDURE AND FINDINGS: Under general anesthesia, the patient was placed in supine position upon the OR table. Usual prep and drape was done exposing the left hand. After examining the abscess and an incision was made above the midportion of the abscess cavity. On opening the abscess cavity, a gush of purulent fluid was noted. A specimen was taken for culture and sensitivity. Following initial i rrigation and irrigation including aggressive irrigation with hydrogen peroxide some degree of debrid ement was carried out again with aggressive further irrigation with antibiotic solution. The abscess cavity was filled with the iodoform gauze. Sterile pressure dressings were applied. The patient tolerated the entire procedure very well and was sent to the recovery room in good condit ion. Dictated By: ISABEL LUNDBERG/DANY Conf#: [id number] DID#: [id number]
[2019-02-13] MEDS: PIPER-TAZO 3.375 GM IV (PMX) 100 ML IVPB SCH ×4 (01:00→20:15)
[2019-02-13] MEDS: VANCOMYCIN 750 MG (PMX) 250 ML IVPB SCH ×3 (01:35→16:37)
[2019-02-13 02:30] VITALS: BP 124/64; PULSE 66; RESP 18
[2019-02-13] MEDS: LACTULOSE 30ML CUP PO SCH ×3 (05:19→17:00)
[2019-02-13 08:57] VITALS: BP 108/57; PULSE 57; RESP 16
[2019-02-13] MEDS: METHADONE 10 MG TAB PO SCH ×3 (08:58→20:27)
[2019-02-13] MEDS: POLYETHYLENE GLYCOL 17 GM PACKET PO SCH (08:59)
[2019-02-13] MEDS: NICOTINE (14 MG/24 HR) PATCH TRANSDERM SCH (09:00)
[2019-02-13] MEDS: ENOXAPARIN 40 MG/0.4 ML SYG SC SCH (09:00)
[2019-02-13] MEDS: D5W-0.45 NACL + KCL 20 MEQ 1,000 ML IV SCH (09:48)
--- NOTE | 2019-02-13 11:00 | PN ---
Date/Time of Note Date/Time of Note DATE: 02/13/19 TIME: 10:58 Assessment/Plan VTE Prophylaxis Risk score (from Ns)>0 risk: 2 SCD applied (from Ns): No SCD contraindicated: other Pharmacological prophylaxis: NA/contraindicated Pharm contraindication: low risk/ambulating Lines/Catheters IV C[facility]ter Type (from [facility] Peripheral IV Urinary Cath still in place: No Assessment/Plan Hospital Course Assessment and plan #Left hand cellulitis with abscess. MRI of left hand did show: Abscess within the dorsal hand at the level of the metacarpals over the extensor tendons in which the fluid collection also extends to surround the fourth extensor compartment tendons at the level of the carpal bones with tenosynovitis (8.2 x 4.1 x 1.3 cm). 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 s/p I&D per surgeon. Continue with antibiotics. Follow- up with surgeon recommendations. Follow-up AM labs. Discussed POC with Dr. Mora Result Diagram: 02/13/19 0909 02/13/19 0909 Results 24hrs Laboratory Tests Test 02/13/19 09:09 White Blood Count 7.7 Red Blood Count 4.55 L Hemoglobin 13.6 L Hematocrit 41.1 L Mean Corpuscular Volume 90.3 Mean Corpuscular Hemoglobin 29.9 Mean Corpuscular Hemoglobin Concent 33.1 Red Cell Distribution Width 12.7 Platelet Count 460 H Mean Platelet Volume 8.5 Immature Granulocytes % 3.900 H Neutrophils % 46.6 Lymphocytes % 30.3 Monocytes % 11.3 H Eosinophils % 6.5 Basophils % 1.4 Nucleated Red Blood Cells % 0.0 Immature Granulocytes # 0.300 H Neutrophils # 3.6 Lymphocytes # 2.3 Monocytes # 0.9 Eosinophils # 0.5 Basophils # 0.1 Nucleated Red Blood Cells # 0.0 Sodium Level 145 H Potassium Level 4.2 Chloride Level 104 Carbon Dioxide Level 33 H Anion Gap 8 Blood Urea Nitrogen 14 Creatinine 1.10 Est Glomerular Filtrat Rate mL/min > 60 Glucose Level 82 Calcium Level 9.5 Subjective 24 Hr Interval Summary Free Text/Dictation Patient resting at this time. Reports decent pain control on left upper extremity at present. Exam/Review of Systems Exam Vitals Vital Signs Date Temp Pulse Resp B/P (MAP) Pulse Ox O2 O2 Flow FiO2 Time Delivery Rate 02/13/19 97.8 57 16 108/57 99 08:57 (74) 02/12/19 Room Air 15:45 02/12/19 2.0 15:15 Intake and Output 02/12/19 02/12/19 02/13/19 1515:00 23:00 07:00 IntakeIntake Total 1150 ml 1150 ml 1350 ml OutputOutput Total 10 ml BalanceBalance 1140 ml 1150 ml 1350 ml Exam Constitutional: alert, oriented Psych: nl mood/affect Head: normocephalic Neck: supple Respiratory: No wheezing Cardiovascular: other (regular rate ) Gastrointestinal: soft, non-tender Musculoskeletal: swelling (left hand ) s/p surgical intervention LUE 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, nl mental status, nl speech Results Results 24hrs Laboratory Tests Test 02/13/19 09:09 White Blood Count 7.7 Red Blood Count 4.55 L Hemoglobin 13.6 L Hematocrit 41.1 L Mean Corpuscular Volume 90.3 Mean Corpuscular Hemoglobin 29.9 Mean Corpuscular Hemoglobin Concent 33.1 Red Cell Distribution Width 12.7 Platelet Count 460 H Mean Platelet Volume 8.5 Immature Granulocytes % 3.900 H Neutrophils % 46.6 Lymphocytes % 30.3 Monocytes % 11.3 H Eosinophils % 6.5 Basophils % 1.4 Nucleated Red Blood Cells % 0.0 Immature Granulocytes # 0.300 H Neutrophils # 3.6 Lymphocytes # 2.3 Monocytes # 0.9 Eosinophils # 0.5 Basophils # 0.1 Nucleated Red Blood Cells # 0.0 Sodium Level 145 H Potassium Level 4.2 Chloride Level 104 Carbon Dioxide Level 33 H Anion Gap 8 Blood Urea Nitrogen 14 Creatinine 1.10 Est Glomerular Filtrat Rate mL/min > 60 Glucose Level 82 Calcium Level 9.5 Medications Medication Current Medications IV Flush (NS 3 ml) 3 ml PER PROTOCOL IV ; Start 02/05/19 at 15:30 Ondansetron HCl (Zofran Inj) 4 mg Q6H PRN IV NAUSEA/VOMITING; Start 02/05/19 at 15:30 Acetaminophen (Tylenol Tab) 650 mg Q6H PRN PO .PAIN 1-3 OR TEMP; Start 02/05/19 at 15:30 Enoxaparin Sodium (Lovenox) 40 mg DAILY SC ; Start 02/06/19 at 09:00 Vancomycin HCl (Vanco Iv Per Pharmacy) VANCOMYCIN PER PHARMACY PER PROTOCOL XX ; Start 02/05/19 at 15:30 Nicotine (Nicoderm 14 Mg/ 24hr) 1 patch DAILY TRANSDERM Last administered on 02/12/19 08:52; Admin Dose 1 PATCH; Start 02/05/19 at 16:30 Methadone HCl (Methadone) 20 mg TID PO Last administered on 02/13/19 08:58; Admin Dose 20 MG; Start 02/07/19 at 21:00 Acetaminophen/ Hydrocodone Bitart ([place] (5/325)) 2 tab Q6H PRN PO .MOD PAIN 4- 6 Last administered on 02/13/19at 01:00; Admin Dose 2 TAB; Start 02/08/19 at 09:30 Hydromorphone HCl (Dilaudid) 2 mg Q4H PRN IV SEVERE PAIN LEVEL 7-10; Start 02/08/19 at 07:30 Polyethylene Glycol (Miralax) 17 gm DAILY PO ; Start 02/10/19 at 11:00 Lactulose (Enulose) 20 gm Q6 PO Last administered on 02/11/19at 17:55; Admin Dose 20 GM; Start 02/10/19 at 12:00 Piperacillin Sod/ Tazobactam Sod 100 ml @ 200 mls/hr Q6H IVPB Last administered on 02/13/19 08:58; Admin Dose 200 MLS/HR; Start 02/12/19 at 08:00 Vancomycin/Sodium Chloride 250 ml @ 125 mls/hr Q8H IVPB Last administered on 02/13/19 08:58; Admin Dose 125 MLS/HR; Start 02/12/19 at 09:00 IV Flush (NS 3 ml) 3 ml PER PROTOCOL IV ; Start 02/12/19 at 14:30 Potassium Chloride/Dextrose/ Sod Cl 1,000 ml @ 100 mls/hr Q10H IV Last administered on 02/12/19at 15:32; Admin Dose 100 MLS/HR; Start 02/12/19 at 14:08 Morphine Sulfate (morphine) 3 mg Q4H PRN IV SEVERE PAIN LEVEL 7-10; Start 02/12/19 at 14:30 Acetaminophen/ Hydrocodone Bitart ([place] (5/325)) 1 tab Q3H PRN PO MODERATE PAIN LEVEL 4-6 Last administered on 02/12/19at 18:33; Admin Dose 1 TAB; Start 02/12/19 at 14:30 LEIDY DENNIS NP Feb 13, 2019 11:00
[2019-02-13 14:43] VITALS: BP 128/65; PULSE 77; RESP 16
--- NOTE | 2019-02-13 16:57 | CONS ---
Assessment/Plan Assessment/Plan Hospital Course (Demo Recall) ID PROGRESS NOTE CURRENT ABX: DAY # => VANCO IV + ZOSYN 24H INTERVAL SUMMARY * POD #1 --> DATE: 02/12/19: Incision & drainage, irrigation debridement abscess left hand * 02/10/19 I&D Cx: WOUND CULTURE Preliminary Culture too young to evaluate * CLINICALLY STATUS QUO === PAIN ISSUES PERSISTING == OVERALL Doing well post operative, ambulatory in room, voiding, now resting, no fevers DIAGNOSTIC IMAGING * 02/06/19 MRI LEFT HAND: 1. Abscess within the dorsal hand at the level of the metacarpals over the extensor tendons in which the fluid collection also extends to surround the fourth extensor compartment tendons at the level of the carpal bones with tenosynovitis (8.2 x 4.1 x 1.3 cm). Marked soft tissue swelling within the dorsal hand which from cellulitis/soft tissue infection.2. Another smaller abscess dorsal to the fourth metacarpophalangeal joint measuring up to 1.2 cm.3. No acute fracture or bony destructive changes within the hand.4. Micro metallic artifact within the soft tissues volar to the first metacarpal limiting evaluation of the first metacarpal and metacarpophalangeal joint. MICRO * 02/10/19 I&D Cx: WOUND CULTURE Preliminary Culture too young to evaluate * 02/06/19 BCX (-); (-)MRSA PHYSICAL EXAMINATION: GENERAL: VSS, NAD HEENT: AT, NC, NECK: Supple, CHEST: Rise symmetrical HEART: Pulse RRR ABDOMEN: EXTREMITIES: Warm, dry == LEFT HAND DSG C/D/I SKIN: No rash, no diaphoresis ID ASSESSMENT 28 yo M admit with: 1. Left hand cellulitis, possible abscess. 2. Intravenous drug abuse. 3. Homelessness. (-) MRSA Nares ABX ALLERGIES: None to ABX INVASIVES: CURRENT ABX: DAY # => VANCO IV + ZOSYN ID RECOMMENDATIONS/PLAN: 1. Continue ABX -- MICRO RESULTS PENDING -- when resulted, will discuss possible switch to PO ABX w/Dr. Reveles 2. Dr. Reveles to change DSG -- otherwise leave DSG in place. . Consultation Date/Type/Reason Admit Date/Time Feb 05, 2019 at 15:09 Initial Consult Date Date/Time of Note DATE: 02/13/19 TIME: 16:54 Exam/Review of Systems Exam Vitals Vital Signs Date Temp Pulse Resp B/P (MAP) Pulse Ox O2 O2 Flow FiO2 Time Delivery Rate 02/13/19 98.3 77 16 128/65 96 14:43 (86) 02/12/19 Room Air 15:45 02/12/19 2.0 15:15 Intake and Output 02/12/19 02/12/19 02/13/19 1515:00 23:00 07:00 IntakeIntake Total 1150 ml 1150 ml 1350 ml OutputOutput Total 10 ml BalanceBalance 1140 ml 1150 ml 1350 ml Results Result Diagram: 02/13/19 0909 02/13/19 0909 Results 24hrs Laboratory Tests Test 02/13/19 09:09 02/13/19 15:42 White Blood Count 7.7 Red Blood Count 4.55 L Hemoglobin 13.6 L Hematocrit 41.1 L Mean Corpuscular Volume 90.3 Mean Corpuscular Hemoglobin 29.9 Mean Corpuscular Hemoglobin Concent 33.1 Red Cell Distribution Width 12.7 Platelet Count 460 H Mean Platelet Volume 8.5 Immature Granulocytes % 3.900 H Neutrophils % 46.6 Lymphocytes % 30.3 Monocytes % 11.3 H Eosinophils % 6.5 Basophils % 1.4 Nucleated Red Blood Cells % 0.0 Immature Granulocytes # 0.300 H Neutrophils # 3.6 Lymphocytes # 2.3 Monocytes # 0.9 Eosinophils # 0.5 Basophils # 0.1 Nucleated Red Blood Cells # 0.0 Sodium Level 145 H Potassium Level 4.2 Chloride Level 104 Carbon Dioxide Level 33 H Anion Gap 8 Blood Urea Nitrogen 14 Creatinine 1.10 Est Glomerular Filtrat Rate mL/min > 60 Glucose Level 82 Calcium Level 9.5 Vancomycin Level Trough 14.1 Medications Medication Current Medications IV Flush (NS 3 ml) 3 ml PER PROTOCOL IV ; Start 02/05/19 at 15:30 Ondansetron HCl (Zofran Inj) 4 mg Q6H PRN IV NAUSEA/VOMITING; Start 02/05/19 at 15:30 Acetaminophen (Tylenol Tab) 650 mg Q6H PRN PO .PAIN 1-3 OR TEMP; Start 02/05/19 at 15:30 Enoxaparin Sodium (Lovenox) 40 mg DAILY SC ; Start 02/06/19 at 09:00 Vancomycin HCl (Vanco Iv Per Pharmacy) VANCOMYCIN PER PHARMACY PER PROTOCOL XX ; Start 02/05/19 at 15:30 Nicotine (Nicoderm 14 Mg/ 24hr) 1 patch DAILY TRANSDERM Last administered on 02/12/19 08:52; Admin Dose 1 PATCH; Start 02/05/19 at 16:30 Methadone HCl (Methadone) 20 mg TID PO Last administered on 02/13/19 13:17; Admin Dose 20 MG; Start 02/07/19 at 21:00 Acetaminophen/ Hydrocodone Bitart ([place] (5/325)) 2 tab Q6H PRN PO .MOD PAIN 4- 6 Last administered on 02/13/19 01:00; Admin Dose 2 TAB; Start 02/08/19 at 09:30 Hydromorphone HCl (Dilaudid) 2 mg Q4H PRN IV SEVERE PAIN LEVEL 7-10; Start 02/08/19 at 07:30 Polyethylene Glycol (Miralax) 17 gm DAILY PO ; Start 02/10/19 at 11:00 Lactulose (Enulose) 20 gm Q6 PO Last administered on 02/11/19 17:55; Admin Dose 20 GM; Start 02/10/19 at 12:00 Piperacillin Sod/ Tazobactam Sod 100 ml @ 200 mls/hr Q6H IVPB Last administered on 02/13/19 14:24; Admin Dose 200 MLS/HR; Start 02/12/19 at 08:00 Vancomycin/Sodium Chloride 250 ml @ 125 mls/hr Q8H IVPB Last administered on 02/13/19 16:37; Admin Dose 125 MLS/HR; Start 02/12/19 at 09:00 IV Flush (NS 3 ml) 3 ml PER PROTOCOL IV ; Start 02/12/19 at 14:30 Morphine Sulfate (morphine) 3 mg Q4H PRN IV SEVERE PAIN LEVEL 7-10; Start 02/12/19 at 14:30 Acetaminophen/ Hydrocodone Bitart ([place] (5/325)) 1 tab Q3H PRN PO MODERATE PAIN LEVEL 4-6 Last administered on 02/12/19 18:33; Admin Dose 1 TAB; Start 02/12/19 at 14:30 SJ PEREZ NP Feb 13, 2019 16:57
[2019-02-13 20:40] VITALS: BP 121/75; PULSE 68; RESP 18
[2019-02-14] MEDS: VANCOMYCIN 750 MG (PMX) 250 ML IVPB SCH ×3 (00:59→16:34)
[2019-02-14] MEDS: PIPER-TAZO 3.375 GM IV (PMX) 100 ML IVPB SCH ×3 (02:31→13:33)
[2019-02-14 02:36] VITALS: BP 131/63; PULSE 62; RESP 20
[2019-02-14] MEDS: LACTULOSE 30ML CUP PO SCH ×4 (05:59→16:36)
[2019-02-14 08:02] VITALS: BP 120/59; PULSE 63; RESP 18
[2019-02-14] MEDS: POLYETHYLENE GLYCOL 17 GM PACKET PO SCH (08:21)
[2019-02-14] MEDS: METHADONE 10 MG TAB PO SCH ×3 (08:21→20:56)
[2019-02-14] MEDS: ENOXAPARIN 40 MG/0.4 ML SYG SC SCH (08:22)
[2019-02-14] MEDS: NICOTINE (14 MG/24 HR) PATCH TRANSDERM SCH (08:22)
--- NOTE | 2019-02-14 13:10 | PN ---
Date/Time of Note Date/Time of Note DATE: 02/14/19 TIME: 13:08 Assessment/Plan VTE Prophylaxis Risk score (from Nsg)>0 risk: 2 SCD applied (from Ns): No SCD contraindicated: other Pharmacological prophylaxis: LMWH Lines/Catheters IV Catheter Type (from Nrsg): Peripheral IV Urinary Cath still in place: No Assessment/Plan Hospital Course SUBJECTIVE: Continues to complain of LUE pain. OBJECTIVE: Physical Exam General: Adequately build 28 year-old male lying in bed in no apparent distress. HEENT: Normocephalic, atraumatic. Eyes: Anicteric sclerae, conjunctivae clear. ENT: Nasal septum is midline, oral mucosa is moist. Poor dentition. Neck supple, no JVD noticed. Respiratory: Bilaterally clear breath sounds. No use of accessory muscles of respiration. No adventitious breath sounds. Cardiovascular: S1, S2 heard. Regular rate and rhythm. Abdomen: Soft, nontender, and nondistended. Bowel sounds positive in all 4 quadrants. Genitourinary: Deferred. Extremities: No cyanosis, no clubbing. Left hand edema and erythema with tenderness in the dorsal aspect. Left forearm larger than right for arm. Peripheral pulses palpable. Neurologic: Cranial nerves II through XII grossly intact. The patient is awake, alert, and oriented. Labs & Vitals per chart ASSESSMENT & PLAN 28-year-old male with history of IV drug use who presented to the emergency room with left arm pain and edema with evidence of underlying cellulitis and possible underlying abscess, who was admitted to inpatient setting for further treatment and evaluation. 1. Left hand cellulitis with underlying abscess. Status post I&D on 02/12/2019. Continue antimicrobials as per ID. Continue pain control. Elevate left upper extremity while resting. 2. IV drug abuse. Cessation advised. Social work consult. 3. Homelessness. Social work consult. 4. Fluids, electrolytes, and nutrition. Regular diet. 5. DVT prophylaxis. Subcutaneous Lovenox. 6. Plan. Continue antimicrobials as per ID. Awaiting final cultures before finalizing antibiotics (not an appropriate candidate for outpatient IV antibiotic therapy provided the history of IV drug abuse). The patient was seen in collaboration with Dr. Arrieta. Result Diagram: 02/14/19 0642 02/14/19 0642 Results 24hrs Laboratory Tests Test 02/13/19 15:42 02/14/19 06:42 Vancomycin Level Trough 14.1 White Blood Count 7.6 Red Blood Count 4.45 L Hemoglobin 13.2 L Hematocrit 41.4 L Mean Corpuscular Volume 93.0 Mean Corpuscular Hemoglobin 29.7 Mean Corpuscular Hemoglobin Concent 31.9 L Red Cell Distribution Width 12.7 Platelet Count 402 Mean Platelet Volume 8.7 Immature Granulocytes % 3.300 H Neutrophils % 43.9 Lymphocytes % 34.5 Monocytes % 11.2 H Eosinophils % 5.8 Basophils % 1.3 Nucleated Red Blood Cells % 0.0 Immature Granulocytes # 0.250 H Neutrophils # 3.4 Lymphocytes # 2.6 Monocytes # 0.9 Eosinophils # 0.4 Basophils # 0.1 Nucleated Red Blood Cells # 0.0 Sodium Level 141 Potassium Level 4.5 Chloride Level 103 Carbon Dioxide Level 33 H Anion Gap 5 Blood Urea Nitrogen 16 Creatinine 1.17 Est Glomerular Filtrat Rate mL/min > 60 Glucose Level 94 Calcium Level 9.8 Exam/Review of Systems Exam Vitals Vital Signs Date Temp Pulse Resp B/P (MAP) Pulse Ox O2 O2 Flow FiO2 Time Delivery Rate 02/14/19 97.8 63 18 120/59 98 08:02 (79) 02/12/19 Room Air 15:45 02/12/19 2.0 15:15 Intake and Output 02/13/19 02/13/19 02/14/19 1515:00 23:00 07:00 IntakeIntake Total 1250 ml 2200 ml 870 ml OutputOutput Total 4 ml BalanceBalance 1250 ml 2196 ml 870 ml Results Results 24hrs Laboratory Tests Test 02/13/19 15:42 02/14/19 06:42 Vancomycin Level Trough 14.1 White Blood Count 7.6 Red Blood Count 4.45 L Hemoglobin 13.2 L Hematocrit 41.4 L Mean Corpuscular Volume 93.0 Mean Corpuscular Hemoglobin 29.7 Mean Corpuscular Hemoglobin Concent 31.9 L Red Cell Distribution Width 12.7 Platelet Count 402 Mean Platelet Volume 8.7 Immature Granulocytes % 3.300 H Neutrophils % 43.9 Lymphocytes % 34.5 Monocytes % 11.2 H Eosinophils % 5.8 Basophils % 1.3 Nucleated Red Blood Cells % 0.0 Immature Granulocytes # 0.250 H Neutrophils # 3.4 Lymphocytes # 2.6 Monocytes # 0.9 Eosinophils # 0.4 Basophils # 0.1 Nucleated Red Blood Cells # 0.0 Sodium Level 141 Potassium Level 4.5 Chloride Level 103 Carbon Dioxide Level 33 H Anion Gap 5 Blood Urea Nitrogen 16 Creatinine 1.17 Est Glomerular Filtrat Rate mL/min > 60 Glucose Level 94 Calcium Level 9.8 Medications Medication Current Medications IV Flush (NS 3 ml) 3 ml PER PROTOCOL IV ; Start 02/05/19 at 15:30 Ondansetron HCl (Zofran Inj) 4 mg Q6H PRN IV NAUSEA/VOMITING; Start 02/05/19 at 15:30 Acetaminophen (Tylenol Tab) 650 mg Q6H PRN PO .PAIN 1-3 OR TEMP; Start 02/05/19 at 15:30 Enoxaparin Sodium (Lovenox) 40 mg DAILY SC ; Start 02/06/19 at 09:00 Vancomycin HCl (Vanco Iv Per Pharmacy) VANCOMYCIN PER PHARMACY PER PROTOCOL XX ; Start 02/05/19 at 15:30 Nicotine (Nicoderm 14 Mg/ 24hr) 1 patch DAILY TRANSDERM Last administered on 02/12/19at 08:52; Admin Dose 1 PATCH; Start 02/05/19 at 16:30 Methadone HCl (Methadone) 20 mg TID PO Last administered on 02/14/19at 12:46; Admin Dose 20 MG; Start 02/07/19 at 21:00 Acetaminophen/ Hydrocodone Bitart ([place] (5/325)) 2 tab Q6H PRN PO .MOD PAIN 4- 6 Last administered on 02/13/19at 01:00; Admin Dose 2 TAB; Start 02/08/19 at 09:30 Hydromorphone HCl (Dilaudid) 2 mg Q4H PRN IV SEVERE PAIN LEVEL 7-10; Start 02/08/19 at 07:30 Polyethylene Glycol (Miralax) 17 gm DAILY PO ; Start 02/10/19 at 11:00 Lactulose (Enulose) 20 gm Q6 PO Last administered on 02/11/19at 17:55; Admin Dose 20 GM; Start 02/10/19 at 12:00 Piperacillin Sod/ Tazobactam Sod 100 ml @ 200 mls/hr Q6H IVPB Last administered on 02/14/19at 08:21; Admin Dose 200 MLS/HR; Start 02/12/19 at 08:00 Vancomycin/Sodium Chloride 250 ml @ 125 mls/hr Q8H IVPB Last administered on 02/14/19at 09:36; Admin Dose 125 MLS/HR; Start 02/12/19 at 09:00 IV Flush (NS 3 ml) 3 ml PER PROTOCOL IV ; Start 02/12/19 at 14:30 Morphine Sulfate (morphine) 3 mg Q4H PRN IV SEVERE PAIN LEVEL 7-10; Start 02/12/19 at 14:30 Acetaminophen/ Hydrocodone Bitart ([place] (5/325)) 1 tab Q3H PRN PO MODERATE PAIN LEVEL 4-6 Last administered on 02/12/19at 18:33; Admin Dose 1 TAB; Start 02/12/19 at 14:30 RADHA ROSS NP Feb 14, 2019 13:10
[2019-02-14 14:15] VITALS: BP 135/61; PULSE 61; RESP 19
--- NOTE | 2019-02-14 15:21 | CONS ---
Assessment/Plan Assessment/Plan Hospital Course (Demo Recall) SUBJECTIVE: No acute events, alert, looks comfortable Abx: IV vancomycin Zosyn. Blood cultures negative. Wound culture preliminary growing staph aureus PHYSICAL EXAMINATION: GENERAL: This is a well-developed, middle-aged white man who is in no distress. HEENT: Head atraumatic, normocephalic. Sclerae anicteric. Buccal mucosa dry. NECK: Supple. CHEST: Rise symmetrical. Breath sounds clear. HEART: S1, S2. ABDOMEN: Soft, bowel sounds present. EXTREMITIES: Left hand significant swelling and erythema extending up to the elbow. ASSESSMENT: 1. Left hand cellulitis with abscess, status post I&D. 2. Intravenous drug abuse. 3. Homelessness. PLAN: Remains stable, continue vancomycin, change Zosyn to Rocephin and await for final cultures Consultation Date/Type/Reason Admit Date/Time Feb 05, 2019 at 15:09 Initial Consult Date Type of Consult id Date/Time of Note DATE: 02/14/19 TIME: 15:20 Exam/Review of Systems Exam Vitals Vital Signs Date Temp Pulse Resp B/P (MAP) Pulse Ox O2 O2 Flow FiO2 Time Delivery Rate 02/14/19 97.3 61 19 135/61 96 14:15 (85) 02/12/19 Room Air 15:45 02/12/19 2.0 15:15 Intake and Output 02/13/19 02/13/19 02/14/19 1515:00 23:00 07:00 IntakeIntake Total 1250 ml 2200 ml 870 ml OutputOutput Total 4 ml BalanceBalance 1250 ml 2196 ml 870 ml Results Result Diagram: 02/14/19 0642 02/14/19 0642 Results 24hrs Laboratory Tests Test 02/13/19 15:42 02/14/19 06:42 Vancomycin Level Trough 14.1 White Blood Count 7.6 Red Blood Count 4.45 L Hemoglobin 13.2 L Hematocrit 41.4 L Mean Corpuscular Volume 93.0 Mean Corpuscular Hemoglobin 29.7 Mean Corpuscular Hemoglobin Concent 31.9 L Red Cell Distribution Width 12.7 Platelet Count 402 Mean Platelet Volume 8.7 Immature Granulocytes % 3.300 H Neutrophils % 43.9 Lymphocytes % 34.5 Monocytes % 11.2 H Eosinophils % 5.8 Basophils % 1.3 Nucleated Red Blood Cells % 0.0 Immature Granulocytes # 0.250 H Neutrophils # 3.4 Lymphocytes # 2.6 Monocytes # 0.9 Eosinophils # 0.4 Basophils # 0.1 Nucleated Red Blood Cells # 0.0 Sodium Level 141 Potassium Level 4.5 Chloride Level 103 Carbon Dioxide Level 33 H Anion Gap 5 Blood Urea Nitrogen 16 Creatinine 1.17 Est Glomerular Filtrat Rate mL/min > 60 Glucose Level 94 Calcium Level 9.8 Medications Medication Current Medications IV Flush (NS 3 ml) 3 ml PER PROTOCOL IV ; Start 02/05/19 at 15:30 Ondansetron HCl (Zofran Inj) 4 mg Q6H PRN IV NAUSEA/VOMITING; Start 02/05/19 at 15:30 Acetaminophen (Tylenol Tab) 650 mg Q6H PRN PO .PAIN 1-3 OR TEMP; Start 02/05/19 at 15:30 Enoxaparin Sodium (Lovenox) 40 mg DAILY SC ; Start 02/06/19 at 09:00 Vancomycin HCl (Vanco Iv Per Pharmacy) VANCOMYCIN PER PHARMACY PER PROTOCOL XX ; Start 02/05/19 at 15:30 Nicotine (Nicoderm 14 Mg/ 24hr) 1 patch DAILY TRANSDERM Last administered on 02/12/19at 08:52; Admin Dose 1 PATCH; Start 02/05/19 at 16:30 Methadone HCl (Methadone) 20 mg TID PO Last administered on 02/14/19at 12:46; Admin Dose 20 MG; Start 02/07/19 at 21:00 Acetaminophen/ Hydrocodone Bitart ([place] (5/325)) 2 tab Q6H PRN PO .MOD PAIN 4- 6 Last administered on 02/13/19at 01:00; Admin Dose 2 TAB; Start 02/08/19 at 09:30 Hydromorphone HCl (Dilaudid) 2 mg Q4H PRN IV SEVERE PAIN LEVEL 7-10; Start 02/08/19 at 07:30 Polyethylene Glycol (Miralax) 17 gm DAILY PO ; Start 02/10/19 at 11:00 Lactulose (Enulose) 20 gm Q6 PO Last administered on 02/11/19at 17:55; Admin Dose 20 GM; Start 02/10/19 at 12:00 Piperacillin Sod/ Tazobactam Sod 100 ml @ 200 mls/hr Q6H IVPB Last administered on 02/14/19 13:33; Admin Dose 200 MLS/HR; Start 02/12/19 at 08:00 Vancomycin/Sodium Chloride 250 ml @ 125 mls/hr Q8H IVPB Last administered on 02/14/19 09:36; Admin Dose 125 MLS/HR; Start 02/12/19 at 09:00 IV Flush (NS 3 ml) 3 ml PER PROTOCOL IV ; Start 02/12/19 at 14:30 Morphine Sulfate (morphine) 3 mg Q4H PRN IV SEVERE PAIN LEVEL 7-10; Start 02/12/19 at 14:30 Acetaminophen/ Hydrocodone Bitart ([place] (5/325)) 1 tab Q3H PRN PO MODERATE PAIN LEVEL 4-6 Last administered on 02/12/19 18:33; Admin Dose 1 TAB; Start 02/12/19 at 14:30 ADRIENNE FUENTES NP Feb 14, 2019 15:21
[2019-02-14] MEDS ORDERED: CEFTRIAXONE 1 GM/50 ML (PMX) 50 ML IVPB SCH (15:30)
[2019-02-14 20:00] VITALS: BP 124/64; PULSE 62; RESP 17
--- NOTE | 2019-02-14 23:31 | PN ---
DATE: 02/14/2019 Second postop day, afebrile and no leukocytosis. I usually keep the dressings on with the drain insi de for 2 days following the procedure and when I was trying to remove the dressings and take the drai n out, the dressings were removed and drains were removed by patient himself. He claims that he did it because it was painful. There no more drain and there were no more purulent drainage. New dressi ngs were applied. He can be discharged with oral antibiotics from [facility]. He was advised to kennedy ve further followup by an orthopedic surgeon or general surgeon. Dictated By: ISABEL LUNDBERG/DANY Conf#: [id number] DID#: [id number]
[2019-02-15] MEDS: VANCOMYCIN 750 MG (PMX) 250 ML IVPB SCH ×2 (00:30→08:41)
[2019-02-15 02:00] VITALS: BP 125/58; PULSE 72; RESP 18
[2019-02-15] MEDS: LACTULOSE 30ML CUP PO SCH ×3 (06:00→11:16)
[2019-02-15 07:58] VITALS: BP 117/57; PULSE 57; RESP 18
[2019-02-15] MEDS: POLYETHYLENE GLYCOL 17 GM PACKET PO SCH (08:39)
[2019-02-15] MEDS: NICOTINE (14 MG/24 HR) PATCH TRANSDERM SCH (08:40)
[2019-02-15] MEDS: ENOXAPARIN 40 MG/0.4 ML SYG SC SCH (08:40)
[2019-02-15] MEDS: METHADONE 10 MG TAB PO SCH ×2 (08:41→12:24)
--- NOTE | 2019-02-15 12:09 | PN ---
Date/Time of Note Date/Time of Note Assessment/Plan VTE Prophylaxis Risk score (from Ns)>0 risk: 2 Lines/Catheters Urinary Cath still in place: No Assessment/Plan Result Diagram: 02/14/19 0642 02/14/19 0642 Exam/Review of Systems Medications Medication RADHA ROSS NP Feb 15, 2019 12:09
--- NOTE | 2019-02-15 12:16 | CONS ---
Assessment/Plan Assessment/Plan Hospital Course (Demo Recall) SUBJECTIVE: No acute events, no fevers, looks comfortable Abx: IV vancomycin Rocephin Blood cultures negative. Wound culture growing MSSA PHYSICAL EXAMINATION: GENERAL: This is a well-developed, middle-aged white man who is in no distress. HEENT: Head atraumatic, normocephalic. Sclerae anicteric. Buccal mucosa dry. NECK: Supple. CHEST: Rise symmetrical. Breath sounds clear. HEART: S1, S2. ABDOMEN: Soft, bowel sounds present. EXTREMITIES: Left hand significant swelling and erythema extending up to the elbow. ASSESSMENT: 1. Left hand cellulitis with abscess, status post I&D. 2. Intravenous drug abuse. 3. Homelessness. PLAN: Remains stable, cleared by yunior blanco dc on oral abx for 7-10 days, pt to f/u with ortho surgeon post dc Consultation Date/Type/Reason Admit Date/Time Feb 05, 2019 at 15:09 Initial Consult Date Type of Consult id Date/Time of Note DATE: 02/15/19 TIME: 12:15 Exam/Review of Systems Exam Vitals Vital Signs Date Temp Pulse Resp B/P (MAP) Pulse Ox O2 O2 Flow FiO2 Time Delivery Rate 02/15/19 98.1 57 18 117/57 100 07:58 (77) 02/12/19 Room Air 15:45 02/12/19 2.0 15:15 Intake and Output 02/14/19 02/14/19 02/15/19 1515:00 23:00 07:00 IntakeIntake Total 1170 ml 800 ml 1010 ml OutputOutput Total 1000 ml BalanceBalance 1170 ml 800 ml 10 ml Results Result Diagram: 02/14/19 0642 02/14/19 0642 Medications Medication Current Medications IV Flush (NS 3 ml) 3 ml PER PROTOCOL IV ; Start 02/05/19 at 15:30 Ondansetron HCl (Zofran Inj) 4 mg Q6H PRN IV NAUSEA/VOMITING; Start 02/05/19 at 15:30 Acetaminophen (Tylenol Tab) 650 mg Q6H PRN PO .PAIN 1-3 OR TEMP; Start 02/05/19 at 15:30 Enoxaparin Sodium (Lovenox) 40 mg DAILY SC ; Start 02/06/19 at 09:00 Vancomycin HCl (Vanco Iv Per Pharmacy) VANCOMYCIN PER PHARMACY PER PROTOCOL XX ; Start 02/05/19 at 15:30 Nicotine (Nicoderm 14 Mg/ 24hr) 1 patch DAILY TRANSDERM Last administered on 02/12/19 08:52; Admin Dose 1 PATCH; Start 02/05/19 at 16:30 Methadone HCl (Methadone) 20 mg TID PO Last administered on 02/15/19 08:41; Ad min Dose 20 MG; Start 02/07/19 at 21:00 Acetaminophen/ Hydrocodone Bitart ([place]uffman (5/325)) 2 tab Q6H PRN PO .MOD PAIN 4- 6 Last administered on 02/13/19 01:00; Admin Dose 2 TAB; Start 02/08/19 at 09:30 Hydromorphone HCl (Dilaudid) 2 mg Q4H PRN IV SEVERE PAIN LEVEL 7-10; Start 02/08/19 at 07:30 Polyethylene Glycol (Miralax) 17 gm DAILY PO ; Start 02/10/19 at 11:00 Lactulose (Enulose) 20 gm Q6 PO Last administered on 02/11/19at 17:55; Admin Dose 20 GM; Start 02/10/19 at 12:00 Vancomycin/Sodium Chloride 250 ml @ 125 mls/hr Q8H IVPB Last administered on 02/15/19 08:41; Admin Dose 125 MLS/HR; Start 02/12/19 at 09:00 IV Flush (NS 3 ml) 3 ml PER PROTOCOL IV ; Start 02/12/19 at 14:30 Morphine Sulfate (morphine) 3 mg Q4H PRN IV SEVERE PAIN LEVEL 7-10; Start 02/12/19 at 14:30 Acetaminophen/ Hydrocodone Bitart (Huffman (5/325)) 1 tab Q3H PRN PO MODERATE PAIN LEVEL 4-6 Last administered on 02/12/19 18:33; Admin Dose 1 TAB; Start 02/12/19 at 14:30 Ceftriaxone Sodium 50 ml @ 100 mls/hr Q24H IVPB Last administered on 02/14/19 15:44; Admin Dose 100 MLS/HR; Start 02/14/19 at 15:30 ADRIENNE FUENTES NP Feb 15, 2019 12:16
--- NOTE | 2019-02-15 12:24 | PDOCDIS ---
Discharge Instructions CONDITION [id number] Patient Condition: [id number] Stable HOME CARE INSTRUCTIONS: [id number] Diet Instructions: [id number] Regular FOLLOW UP/APPOINTMENTS Follow-up Plan 1. Please follow-up with your primary care provider in 1 week. 2. Please follow-up with outpatient surgeon in 1 week. OTHER ORDERS: Other Orders: 1. Please follow-up with your primary care provider in 1 week. 2. Please follow-up with outpatient surgeon in 1 week. 3. Complete the course of antibiotics. 4. Abstain from using recreational drugs. 5. Resume activities as tolerated. RADHA ROSS NP Feb 15, 2019 12:24
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
[2019-02-15 14:11] VITALS: BP 138/62; PULSE 83; RESP 19
== END 2019-02-15 13:00 | disposition home or self-care (01) | DRG 580 ==
LOC: E/R 09:37 → PP2 15:09
PROVIDERS: ADMIT Internal Medicine; ATTEND Internal Medicine
PROC: 0J9K0ZZ Drainage of Left Hand Subcutaneous Tissue and Fascia, Open Approach (ICD-10-PCS; principal; 2019-02-12 13:00)
DX: L02.512 Cutaneous abscess of left hand (principal); L03.114 Cellulitis of left upper limb; F19.10 Other psychoactive substance abuse, uncomplicated; Z59.0 Homelessness; F17.200 Nicotine dependence, unspecified, uncomplicated; F11.10 Opioid abuse, uncomplicated; B95.62 Methicillin resistant Staphylococcus aureus infection as the cause of diseases classified elsewhere; M65.9 Synovitis and tenosynovitis, unspecified; F60.2 Antisocial personality disorder
CPT/HCPCS: 36415; 73200; 73218; 80048; 80053; 80202; 80307; 82565; 83735; 84100; 84520; 85025; 85610; 85651; 85730; 86140; 86703; 87070; 87081; 87102; 93005; 93306; 93971; 96372; 96374; J0696; J1650; J2250; J2405; J2543; J3010; J3370; J3480; J7040